=== PATIENT | female | born 1970 | race Caucasian/White ===

== ENCOUNTER → 2017-11-23 | Outpatient (CLI) | payer OTHER ==
[~2017-11-23] MED LIST: ALB17R INH; ALBU2.5V36 IH; ALBU8TAB4 PO; ALBUTEROL INHALER IH; ALP5 PO; AMLO-101 PO; ARIP10TA4 PO; AZIT-18 PO; CHOL100034; CHOL100052 PO; CHOL100061 PO; CHOL200022; CIP500 GT; CLO1 PO; CLON-303 PO; DES100PT PO; DESO1TAB32 PO; DESV50TA9 PO; DULO60CA51 PO; ESC10 PO; ESCI20TA38 PO; FROV2.5T6 PO; FUR20 PO; FURO20TA19 PO; FURO40TA35 PO; HCTZ25 PO; HYDR-3074 PO; HYZAAR PO; LAMO25TA64 PO; LISI-349 PO; LISI-362 PO; LISI-374 PO; LOR1 PO; LOS50 PO; LOSA-31 PO; MET850 PO; METF-408 PO; METH18ERPT PO; METH54TA12 PO; METO-221 PO; MULT-1379 PO; MULT1TAB64 PO; OMEG-11 PO; OMEG500C7 PO; OMEP-125 PO; ONDA4TAB97 PO; OXYC-865 PO; OXYC-869 PO; PAN40 PO; PANT20TA26 PO; PER PO; POTA20TA85 PO; PRED20TA6 PO; PRISTIQ; PRISTIQUE PO; PRO25 PO; PROM-110 PO; PROP120C31 PO; PROP160C20 PO; QUET200T29 PO; SPI25 PO; SPIRONALACTONE PO; TEMA-1 PO; TRAM-420 PO; TRAZ-163 PO; TRAZ150T61 PO; TRAZ300T17 PO; TRAZ50 PO; VENL150C61 PO; VERS120 PO
== END ==
LOC: LAB 14:44
PROVIDERS: ATTEND Internal Medicine Nephrology
DX: I10 Essential (primary) hypertension (principal); R53.83 Other fatigue
CPT/HCPCS: 36415; 82040; 82247; 82310; 82374; 82435; 82565; 82570; 82947; 84075; 84132; 84155; 84156; 84295; 84450; 84460; 84520

== ENCOUNTER → 2018-02-11 | Outpatient (REF) | payer OTHER ==
[2018-02-11 10:52] LABS: PLATELET COUNT, AUTOMATED 271 K/uL (150-450)
== END ==
PROVIDERS: ATTEND Nurse Practitioner Family
DX: N39.0 Urinary tract infection, site not specified (principal)
CPT/HCPCS: 82040; 82247; 82310; 82374; 82435; 82565; 82947; 84075; 84132; 84155; 84295; 84450; 84460; 84520; 85025

== ENCOUNTER 2018-03-04 16:54 | Emergency (ER) | payer OTHER ==
--- NOTE | 2018-03-04 17:03 | ER Report ---
History and Physical Time Seen By MD: 17:03 Hx. of Stated Complaint: Pt reporting severe headache that began suddenly at 1400. Pt states this is close to the worst headache ever. HPI/ROS CHIEF COMPLAINT: Headache HISTORY OF PRESENT ILLNESS: 47-year-old female patient presents to emergency room with complaint of headache. Patient states this headache started approximately 2:00 this afternoon and just came on out of nowhere. Patient states that she does get headaches and this one is especially bad. She is unable to ascertain whether this is a worsening headache of her life. Patient states she's been nauseated, she has been having some vomiting. She states that she has taken some Ultram for this with no improvement. She states that when she gets headaches like this that oftentimes there is nothing that seems to help. She denies having any fevers, chills. REVIEW OF SYSTEMS: Respiratory: No cough, no dyspnea. Cardiovascular: No chest pain, no palpitations. Gastrointestinal: No vomiting, no abdominal pain. Musculoskeletal: No back pain. Allergies: Coded Allergies: calcium carbonate (Verified Allergy, Intermediate, 07/02/16) amoxicillin (Verified Allergy, Mild, RASH, 04/30/15) aspirin (Verified Allergy, Mild, BLODDY NOSE , 04/30/15) fluconazole (Verified Allergy, Unknown, 04/30/15) latex (Verified Allergy, Unknown, 04/30/15) Home Meds Active Scripts Ondansetron (ZOFRAN ODT) 4 Mg Tab.rapdis, 4 MG PO Q6H Y for NAUSEA/VOMITING, # 20 TAB.BRANDI Prov:JUNIOR GARCÍA 03/04/18 Omeprazole (OMEPRAZOLE) 20 Mg Capsule., 1 CAP PO QDAY, #90 CAP 4 Refills Prov:RAKESH GOLDEN MD 07/24/16 Reported Medications Clonidine Hcl (CATAPRES) 0.1 Mg Tablet, 0.5 MG PO BID, TAB 03/04/18 [place]-3 Fatty Acids/Fish Oil (FISH OIL 1,000 MG CAPSULE) 1 Each Capsule, 1 CAP PO QDAY, CAPSULE 07/24/16 Cholecalciferol (Vitamin D3) (VITAMIN D) 1,000 Unit Tablet, 1000 UNIT PO 07/11/16 Multivitamin (MULTI VITAMIN DAILY) 1 Each Tablet, 1 TAB PO QDAY 07/11/16 Lamotrigine (LAMICTAL) 25 Mg Tablet, 3 TAB PO QDAY TAKE 50mg every morning for two weeks. Then take 100mg every morning & continue. 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 07/11/16 Furosemide (LASIX) 40 Mg Tablet, 1.5 TAB PO DAILY, TAB 1 tab po q am, 1/2 tab po q pm 07/11/16 Trazodone Hcl (TRAZODONE HCL) 100 Mg Tablet, 1 TAB PO QHS, TAB In addition to 300 mg for total of 400 mg 07/11/16 Venlafaxine Hcl (EFFEXOR XR) 150 Mg Cap.er.24h, 2 CAP PO QDAY 06/30/16 Tramadol Hcl (TRAMADOL HCL) 50 Mg Tablet, 1 TAB PO Q6H Y for PAIN 04/30/15 Trazodone Hcl (TRAZODONE HCL) 300 Mg Tablet, 1 TAB PO QHS In addition to 100 mg, for total of 400 mg. 04/30/15 Lisinopril (LISINOPRIL) 40 Mg Tablet, 1 TAB PO QDAY 04/30/15 Propranolol Hcl (PROPRANOLOL HCL) 160 Mg Cap.sa.24h, 1 CAP PO QDAY 04/30/15 Methylphenidate Hcl (CONCERTA) 54 Mg Tab.er.24, 1 TAB PO QDAY Y for work days 04/30/15 Methylphenidate Hcl (CONCERTA) 18 Mg Tab.er.24, 1 TAB PO QDAY 04/30/15 Discontinued Reported Medications Amlodipine Besylate (NORVASC) 5 Mg Tablet, 1 TAB PO QDAY, TAB 07/11/16 Aripiprazole (ABILIFY) 10 Mg Tablet, 1 TAB PO QHS, TAB 07/11/16 Discontinued Scripts Ondansetron Hcl (ZOFRAN) 4 Mg Tablet, 1 TAB PO PRN, #30 TAB 1 Refill Prov:RAKESH GOLDEN MD 07/24/16 Oxycodone Hcl/Acetaminophen (PERCOCET 5-325 MG TABLET) 1 Each Tablet, 1 TAB PO QID Y for pain, #30 TAB 0 Refills Prov:RAKESH GOLDEN MD 07/24/16 Promethazine Hcl (PROMETHAZINE HCL) 25 Mg Tablet, 1 TAB PO Q8H Y for nausea, # 30 TAB 0 Refills Prov:RAKESH GOLDEN MD 07/24/16 Past Medical/Surgical History Patient has a past medical history of migraines, symptomatic tachycardia, irregular heartbeat, hypertension, asthma, reflux, cholecystitis, diabetes, alcohol use, depression. Patient has a surgical history of LASIK surgery, tonsillectomy, right knee surgery, ulnar nerve repair, tubal ligation, uterine ablation, cholecystectomy. Patient has a family medical history of cancer, CAD, stroke, diabetes Reviewed Nurses Notes: Yes Hx Smoking: No Smoking Status: Never Smoker Exposure to Second Hand Smoke?: No Hx Substance Use Disorder: Yes Hx Alcohol Use: Yes Constitutional Vital Sign - Last 24 Hours 03/04/18 03/04/18 03/04/18 03/04/18 16:58 17:01 17:01 17:06 Pulse 119 Resp 16 B/P (MAP) 169/97 (121) 169/97 178/137 (151) Pulse Ox 95 O2 Delivery Room Air O2 Flow Rate 2.0 03/04/18 03/04/18 03/04/18 03/04/18 17:09 17:24 17:30 17:35 Pulse 105 112 113 Resp 13 B/P (MAP) 193/121 (145) Pulse Ox 95 94 95 03/04/18 03/04/18 03/04/18 03/04/18 17:36 17:40 17:45 18:00 Pulse 121 110 113 Resp 20 23 15 B/P (MAP) 140/53 (82) 130/74 (92) Pulse Ox 96 93 95 03/04/18 03/04/18 03/04/18 03/04/18 18:15 18:20 18:30 18:40 Pulse 102 103 Resp 25 11 B/P (MAP) 130/89 (103) 109/74 (86) Pulse Ox 95 94 03/04/18 03/04/18 03/04/18 03/04/18 18:45 19:00 19:15 19:20 Pulse 102 99 93 Resp 12 8 26 B/P (MAP) 127/75 (92) 115/87 (96) Pulse Ox 91 88 92 03/04/18 19:30 Pulse 95 Resp 20 B/P (MAP) 127/60 (82) Pulse Ox 97 Physical Exam General Appearance: The patient is alert, has no immediate need for airway protection and no current signs of toxicity. Eyes: Pupils equal and round no injection. Respiratory: Chest is non tender, lungs are clear to auscultation. Cardiac: regular rate and rhythm Gastrointestinal: Abdomen is soft and non tender, no masses, bowel sounds normal. Musculoskeletal: Neck: Neck is supple and non tender. Extremities have full range of motion and are non tender. Skin: No rashes or lesions. Neuro: Patient is alert and oriented 4, cranial nerves II through XII are grossly intact. DIFFERENTIAL DIAGNOSIS: After history and physical exam differential diagnosis was considered for headache including but not limited to subarachnoid hemorrhage , migraine headache, tension headache and infectious causes such as meningitis, pharyngitis and sinusitis. Medical Decision Making Data Points Result Diagram: 03/04/18 1707 03/04/18 1707 Laboratory Hematology Test 03/04/18 17:07 Red Blood Count 4.70 M/uL (4.17-5.56) Mean Corpuscular Volume 91.0 fL (80.0-96.0) Mean Corpuscular Hemoglobin 31.1 pg (26.0-33.0) Mean Corpuscular Hemoglobin Concent 34.1 g/dL (32.0-36.0) Red Cell Distribution Width 13.9 % (11.5-14.5) Mean Platelet Volume 9.0 fL (7.2-11.1) Neutrophils (%) (Auto) 70.9 % (39.4-72.5) Lymphocytes (%) (Auto) 19.9 % (17.6-49.6) Monocytes (%) (Auto) 6.0 % (4.1-12.4) Eosinophils (%) (Auto) 2.5 % (0.4-6.7) Basophils (%) (Auto) 0.7 % (0.3-1.4) Nucleated RBC Relative Count (auto) 0.0 /100WBC Neutrophils # (Auto) 7.7 K/uL (2.0-7.4) Lymphocytes # (Auto) 2.2 K/uL (1.3-3.6) Monocytes # (Auto) 0.6 K/uL (0.3-1.0) Eosinophils # (Auto) 0.3 K/uL (0.0-0.5) Basophils # (Auto) 0.1 K/uL (0.0-0.1) Nucleated RBC Absolute Count (auto) 0.00 K/uL Sodium Level 141 mmol/L (137-145) Potassium Level 3.4 mmol/L (3.5-5.0) Chloride Level 102 mmol/L (98-107) Carbon Dioxide Level 26 mmol/L (22-31) Blood Urea Nitrogen 10 mg/dl (7-18) Creatinine 0.70 mg/dl (0.52-1.04) Glomerular Filtration Rate Calc > 60.0 Random Glucose 123 mg/dl (75-110) Calcium Level 9.5 mg/dl (8.4-10.2) Total Bilirubin 0.9 mg/dl (0.2-1.3) Aspartate Amino Transf (AST/SGOT) 66 U/L (0-35) Alanine Aminotransferase (ALT/SGPT) 83 U/L (0-56) Alkaline Phosphatase 99 U/L (0-126) C-Reactive Protein 2.4 mg/dl (<1.0) Total Protein 7.5 gm/dl (6.3-8.2) Albumin 4.2 g/dl (3.5-5.0) Chemistry Test 03/04/18 17:07 White Blood Count 10.8 k/uL (4.5-11.0) Red Blood Count 4.70 M/uL (4.17-5.56) Hemoglobin 14.6 g/dL (12.0-16.0) Hematocrit 42.7 % (34.0-47.0) Mean Corpuscular Volume 91.0 fL (80.0-96.0) Mean Corpuscular Hemoglobin 31.1 pg (26.0-33.0) Mean Corpuscular Hemoglobin Concent 34.1 g/dL (32.0-36.0) Red Cell Distribution Width 13.9 % (11.5-14.5) Platelet Count 246 K/uL (150-450) Mean Platelet Volume 9.0 fL (7.2-11.1) Neutrophils (%) (Auto) 70.9 % (39.4-72.5) Lymphocytes (%) (Auto) 19.9 % (17.6-49.6) Monocytes (%) (Auto) 6.0 % (4.1-12.4) Eosinophils (%) (Auto) 2.5 % (0.4-6.7) Basophils (%) (Auto) 0.7 % (0.3-1.4) Nucleated RBC Relative Count (auto) 0.0 /100WBC Neutrophils # (Auto) 7.7 K/uL (2.0-7.4) Lymphocytes # (Auto) 2.2 K/uL (1.3-3.6) Monocytes # (Auto) 0.6 K/uL (0.3-1.0) Eosinophils # (Auto) 0.3 K/uL (0.0-0.5) Basophils # (Auto) 0.1 K/uL (0.0-0.1) Nucleated RBC Absolute Count (auto) 0.00 K/uL Glomerular Filtration Rate Calc > 60.0 Calcium Level 9.5 mg/dl (8.4-10.2) Total Bilirubin 0.9 mg/dl (0.2-1.3) Aspartate Amino Transf (AST/SGOT) 66 U/L (0-35) Alanine Aminotransferase (ALT/SGPT) 83 U/L (0-56) Alkaline Phosphatase 99 U/L (0-126) C-Reactive Protein 2.4 mg/dl (<1.0) Total Protein 7.5 gm/dl (6.3-8.2) Albumin 4.2 g/dl (3.5-5.0) EKG/Imaging Imaging CT Head without contrast Indication: Headache. Comparison: 02/25/2012. Technique: Axial CT images were obtained through the brain from the skull base to the vertex without administration of IV contrast. Reformatted coronal and sagittal images were also obtained. One of the following dose optimization techniques was utilized in the performance of this exam: automated exposure control; adjustment of the mA and/ or kV according to the patient's size; or use of an iterative reconstruction technique. Specific details can be referenced in the facility's radiology CT exam operational policy. Findings: No evidence of mass, mass effect, or midline shift. No acute intracranial hemorrhage or acute territorial infarction. No extra-axial fluid collection or hydrocephalus. No abnormal density. [place]/ white matter differentiation appears normal. Bony structures show no fractures or lesions. The visualized paranasal sinuses and mastoid air cells are clear. IMPRESSION: 1. Negative unenhanced CT of the head. Report Dictated By: Edgard Henson at 03/04/2018 6:21 PM Report E-Signed By: Edgard Henson at 03/04/2018 6:25 PM ED Course/Re-evaluation ED Course Patient was admitted exam room, history and physical were obtained. Differential diagnoses were considered. On examination patient has significant amount of pain. She had photophobia. An IV was started, CBC, CMP, CRP was done. Patient did have an elevated CRP of 2.4, the remainder the labs were unremarkable. Due to the significant level of pain a CT scan of the head was done which was negative. Patient did receive 4 mg of morphine prior to her CAT scan. Patient did receive a dose of Phenergan after her CAT scan which is complaining of nausea. When the CT scan was negative patient received 30 mg of Toradol, so 30 mg of Norflex, 25 mg of Benadryl and 10 mg of Decadron. On reevaluation patient states that her pain had gone from a 6 out of 10 to a 2 out of 10. Patient feels significant better. She is tired and like to go home and sleep. Patient will be discharged at this time. She is to follow-up with her primary care provider in the next week. Patient verbalized understanding and agreement with plan. Decision to Disposition Date: March 04, 2018 Decision to Disposition Time: 19:45 Depart Departure Latest Vital Signs Vital Signs Date Time Temp Pulse Resp B/P (MAP) Pulse Ox O2 Delivery O2 Flow Rate FiO2 03/04/18 19:30 95 20 127/60 (82) 97 03/04/18 17:01 2.0 03/04/18 17:01 Room Air Impression: Primary Impression: Migraine Condition: Improved Disposition: HOME OR SELF-CARE Referrals: RAKESH GOLDEN MD (PCP) New Scripts Ondansetron (ZOFRAN ODT) 4 Mg Tab.rapdis 4 MG PO Q6H Y for NAUSEA/VOMITING, #20 TAB.BRANDI Prov: JUNIOR GARCÍA 03/04/18 Patient Instructions: Migraine Headache (ED) Additional Instructions: Increase fluid intake. Get plenty of rest. Follow up with your primary care provider. Return to the ER if condition worsens. Keep a journal for possible triggers. Problem Qualifiers Primary Impression: Migraine Migraine type: without aura Status migrainosus presence: without status migrainosus Intractability: not intractable Qualified Codes: G43.009 - Migraine without aura, not intractable, without status migrainosus JUNIOR GARCÍA March 04, 2018 17:03
[2018-03-04] MEDS ORDERED: NS(*) 0.9% 1000 ML BAG 1,000 ML IV ONE (17:07)
[2018-03-04] MEDS ORDERED: MORPHINE 2 MG/ML SYR IVP ONE (17:10)
[2018-03-04] MEDS ORDERED: CLON-392 PO (17:10)
[2018-03-04] MEDS ORDERED: ONDANSETRON 4 MG/2 ML VIAL IVP ONE (17:10)
[2018-03-04 17:18] LABS: PLATELET COUNT, AUTOMATED 246 K/uL (150-450)
[2018-03-04] MEDS ORDERED: PROMETHAZINE 25 MG/ML 1 ML AMP IVP ONE (18:15)
--- NOTE | 2018-03-04 18:29 | RADIOLOGY IMAGING REPORT ---
FACILITY: [facility] [place] PATIENT NAME: Erin Mckay : 1970 MR: [id number] V: [id number] EXAM DATE: ORDERING PHYSICIAN: JUNIOR GARCÍA [place]CHNOLOGIST[place] [facility] [place] Mck[place] : 1970 Visit/Account:[id number] Date of Sevice: 03/04/2018 CT Head without contrast Indication: Headache. Comparison: 02/25/2012. Technique: Axial CT images were obtained through the brain from the skull base to the vertex without administration of IV contrast. Reformatted coronal and sagittal images were also obtained. One of the following dose optimization techniques was utilized in the performance of this exam: autom ated exposure control; adjustment of the mA and/or kV according to the patient's size; or use of an i terative reconstruction technique. Specific details can be referenced in the facility's radiology CT exam operational policy. Findings: No evidence of mass, mass effect, or midline shift. No acute intracranial hemorrhage or acute territorial infarction. No extra-axial fluid collection or hydrocephalus. No abnormal density. Parker/white matter differentiat ion appears normal. Bony structures show no fractures or lesions. The visualized paranasal sinuses and mastoid air cells are clear. IMPRESSION: 1. Negative unenhanced CT of the head. Report Dictated By: Edgard Henson at 03/04/2018 6:21 PM Report E-Signed By: Edgard Henson at 03/04/2018 6:25 PM WSN:[id number]
[2018-03-04] MEDS ORDERED: ORPHENADRINE 60MG/2ML INJ IVP ONE (18:35)
[2018-03-04] MEDS ORDERED: DEXAMETHASONE SOD PHOS 10MG/ML IVP ONE (18:35)
[2018-03-04] MEDS ORDERED: diphenhydrAMINE 50 MG/ML VIAL IVP ONE (18:35)
[2018-03-04] MEDS ORDERED: KETOROLAC 30 MG/ML VIAL IVP ONE (18:35)
[2018-03-04 19:40] VITALS: BP 131/91
[2018-03-04] MEDS ORDERED: ONDA4TAB PO (19:44)
== END 2018-03-04 20:01 | disposition home or self-care (01) ==
LOC: ER 16:59
DX: G43.009 Migraine without aura, not intractable, without status migrainosus (principal); R11.2 Nausea with vomiting, unspecified
CPT/HCPCS: 70450; 85025; 86140; 96361; 96374; 96375; 99284; J1100; J1200; J1885; J2270; J2360; J2405; J2550; J7030; 82040; 82247; 82310; 82374; 82435; 82565; 82947; 84075; 84132; 84155; 84295; 84450; 84460; 84520

== ENCOUNTER → 2018-04-12 | Outpatient (CLI) | payer OTHER ==
[~2018-04-12] MED LIST changes: +CLON-392 PO; +ONDA4TAB PO
[2018-04-12 15:59] LABS: PLATELET COUNT, AUTOMATED 221 K/uL (150-450)
--- NOTE | 2018-04-12 16:47 | EKG ---
FACILITY: [facility] PATIENT NAME: IGNACIO CURRAN : [id number] MR: [id number] V: [id number] EXAM DATE: ORDERING PHYSICIAN: ROSS GAMA TECHNOLOGIST: GAVIN Lucia Reason : PRE-OP Blood Pressure : / mmHG Vent. Rate : 094 BPM Atrial Rate : 094 BPM P-R Int : 144 ms QRS Dur : 080 ms QT Int : 328 ms P-R-T Axes : 058 067 045 degrees QTc Int : 410 ms Normal sinus rhythm Nonspecific T wave abnormality Abnormal ECG When compared with ECG of 01-FEB-2013 07:09, Nonspecific T wave abnormality now evident in Inferior leads Confirmed by AAKASH POWELL ([id number]) on 04/13/2018 7:46:03 AM Referred By: Confirmed By:AAKASH POWELL
== END ==
LOC: LAB 15:34
PROVIDERS: ATTEND Nurse Practitioner Psychiatric/Mental Health
DX: Z00.00 Encounter for general adult medical examination without abnormal findings (principal); Z01.810 Encounter for preprocedural cardiovascular examination; R94.31 Abnormal electrocardiogram [ECG] [EKG]
CPT/HCPCS: 36415; 81001; 81025; 82040; 82247; 82310; 82374; 82435; 82565; 82947; 84075; 84132; 84155; 84295; 84443; 84450; 84460; 84520; 85025; 93005

== ENCOUNTER 2018-10-23 19:41 | Inpatient (IN) | payer OTHER ==
[~2018-10-23] VITALS: Ht 160 cm; Wt 92.8 kg
[~2018-10-23 19:41] MED LIST changes: +BUPR-124 PO; +FURO-47 PO; +PRAZ2CAP26 PO; -TRAZ-163 PO; +TRAZ100T31 PO
--- NOTE | 2018-10-23 19:44 | ER Report ---
History and Physical Time Seen By MD: 19:44 HPI/ROS CHIEF COMPLAINT: Shortness of breath HISTORY OF PRESENT ILLNESS: Patient is a 48-year-old female with known history of reactive airways disease also with history of atypical chest pain she pre sents with approximately 24 hours of increased work of breathing, cough and body aches headache and subjective fevers. She states she's also noticed bilateral lower extremity swelling over the last 24 hours. He admits to some chest tightness. Patient has been using her albuterol inhaler without success. Patient states that she felt well prior to yesterday. She did receive her influenza vaccine. Patient works as a nurse on the behavioral medicine floor. REVIEW OF SYSTEMS: Constitutional: Subjective fevers Eyes: No discharge. ENT: No sore throat. Cardiovascular: Chest tightness Respiratory: Increased work of breathing cough and shortness of breath Gastrointestinal: No abdominal pain, no vomiting. Genitourinary: No hematuria. Musculoskeletal: No back pain. Skin: No rashes. Neurological: Generalized headache Allergies: Coded Allergies: calcium carbonate (Verified Allergy, Intermediate, 07/02/16) amoxicillin (Verified Allergy, Mild, RASH, 04/30/15) aspirin (Verified Allergy, Mild, BLODDY NOSE , 04/30/15) fluconazole (Verified Allergy, Unknown, 04/30/15) latex (Verified Allergy, Unknown, 04/30/15) Home Meds Active Scripts Omeprazole (OMEPRAZOLE) 20 Mg Capsule.dr, 1 CAP PO QDAY, #90 CAP 4 Refills Prov:RAKESH GOLDEN MD 07/24/16 Reported Medications Memantine HCl 10 MG (Memantine HCl 10 MG) 10 Mg Tablet, 10 MG PO BID 10/23/18 Venlafaxine Hcl (VENLAFAXINE HCL ER) 150 Mg Tab.er.24, 450 MG PO QDAY 10/23/18 Trazodone Hcl (TRAZODONE HCL) 100 Mg Tablet, 100 MG PO QHS, TAB Take with a 300mg tablet for a total of 400mg at HS. 10/23/18 Prazosin Hcl (PRAZOSIN HCL) 2 Mg Capsule, 6 MG PO QHS, CAPSULE 10/23/18 Bupropion Hcl (BUPROPION HCL SR) 150 Mg Tablet.er, 450 MG PO DAILY 10/23/18 Furosemide (FUROSEMIDE) 20 Mg Tablet, 1 TAB PO QPM PRN for SEE COMMENT, TAB 10/23/18 Trazodone Hcl (TRAZODONE HCL) 300 Mg Tablet, 300 MG PO QHS Take with a 100mg tablet for a total of 400mg at HS. 10/23/18 Furosemide (FUROSEMIDE) 40 Mg Tablet, 1 TAB PO QDAY, TAB 04/15/18 Propranolol Hcl (PROPRANOLOL HCL) 160 Mg Cap.sa.24h, 1 CAP PO QDAY 04/15/18 [place]-3 Fatty Acids/Fish Oil (FISH OIL 1,000 MG CAPSULE) 1 Each Capsule, 1 CAP PO QDAY, CAPSULE 07/24/16 Cholecalciferol (Vitamin D3) (VITAMIN D) 1,000 Unit Tablet, 1 TAB PO QDAY 07/11/16 Multivitamin (MULTI VITAMIN DAILY) 1 Each Tablet, 1 TAB PO QDAY 07/11/16 Discontinued Reported Medications Venlafaxine Hcl (VENLAFAXINE HCL ER) 75 Mg Tab.er.24, 75 MG PO QDAY 10/23/18 Bupropion HCl (Bupropion HCl ER) 200 Mg Tablet.er, 350 MG PO QDAY 10/23/18 Venlafaxine Hcl (VENLAFAXINE HCL ER) 225 Mg Tab.er.24, 225 MG PO QDAY 10/23/18 Prazosin Hcl (PRAZOSIN HCL) 5 Mg Capsule, 6 MG PO QDAY, CAPSULE 10/23/18 Venlafaxine Hcl (EFFEXOR XR) 75 Mg Cap.er.24h, 75 MG PO TID 10/23/18 Prazosin Hcl (PRAZOSIN HCL) 2 Mg Capsule, 2 CAP PO QDAY, CAPSULE 04/15/18 Clonidine Hcl (CATAPRES) 0.1 Mg Tablet, 0.5 TAB PO BID, TAB 03/04/18 Lamotrigine (LAMICTAL) 25 Mg Tablet, 3 TAB PO QDAY 07/11/16 Venlafaxine Hcl (EFFEXOR XR) 150 Mg Cap.er.24h, 3 CAP PO QDAY 06/30/16 Trazodone Hcl (TRAZODONE HCL) 300 Mg Tablet, 1 TAB PO QHS 04/30/15 Past Medical/Surgical History Patient has a past medical history of migraines, symptomatic tachycardia, irregular heartbeat, hypertension, asthma, reflux, cholecystitis, diabetes, alcohol use, depression. Patient has a surgical history of LASIK surgery, tonsillectomy, right knee surgery, ulnar nerve repair, tubal ligation, uterine ablation, cholecystectomy. Patient has a family medical history of cancer, CAD, stroke, diabetes Hx Smoking: No Smoking Status: Never Smoker Exposure to Second Hand Smoke?: No Hx Substance Use Disorder: No Hx Alcohol Use: Yes Constitutional Vital Sign - Last 24 Hours 10/23/18 10/23/18 10/23/18 10/23/18 19:43 19:46 19:50 19:50 Temp 97.4 Pulse 85 82 Resp 26 24 B/P (MAP) 133/107 (116) 133/107 Pulse Ox 93 100 O2 Delivery Room Air Nasal Cannula O2 Flow Rate 2.0 10/23/18 10/23/18 10/23/18 10/23/18 19:53 19:56 20:11 20:26 Pulse 90 87 90 Resp 35 Pulse Ox 95 98 98 O2 Flow Rate 2.0 10/23/18 10/23/18 10/23/18 10/23/18 20:31 20:46 20:52 21:00 Pulse 92 82 Resp 29 19 B/P (MAP) 137/83 (101) 112/96 (101) Pulse Ox 98 97 10/23/18 10/23/18 10/23/18 10/23/18 21:01 21:06 21:21 21:30 Pulse 82 80 75 Resp 42 14 12 B/P (MAP) 136/81 (99) Pulse Ox 97 97 99 Physical Exam General Appearance: The patient is alert, has no immediate need for airway protection and no signs of toxicity. Patient with increased work of breathing and accessory muscle use. Only able to talk in 3-4 word sentences Eyes: Pupils equal and round no pallor or injection. ENT, Mouth: Mucous membranes are moist. Respiratory: Patient with retractions, audible wheezing and increased respiratory rate. Cardiovascular: Regular rate and rhythm. Gastrointestinal: Abdomen is soft and non tender, no masses, bowel sounds normal. Neurological: Awake and alert Skin: Warm and dry, no rashes. Musculoskeletal: Neck is supple non tender. Extremities are nontender, nonswollen and have full range of motion. Medical Decision Making Data Points Result Diagram: 10/23/18199910/23/181999 Laboratory Hematology Test 10/23/18 19:51 10/23/18 20:00 Influenza Virus Type A (PCR) Negative (NEGATIVE) Influenza Virus Type B (PCR) Negative (NEGATIVE) Red Blood Count 5.66 M/uL (4.17-5.56) Mean Corpuscular Volume 90.3 fL (80.0-96.0) Mean Corpuscular Hemoglobin 30.3 pg (26.0-33.0) Mean Corpuscular Hemoglobin Concent 33.5 g/dL (32.0-36.0) Red Cell Distribution Width 13.5 % (11.5-14.5) Mean Platelet Volume 10.1 fL (7.2-11.1) Neutrophils (%) (Auto) 67.9 % (39.4-72.5) Lymphocytes (%) (Auto) 19.7 % (17.6-49.6) Monocytes (%) (Auto) 8.4 % (4.1-12.4) Eosinophils (%) (Auto) 3.0 % (0.4-6.7) Basophils (%) (Auto) 1.0 % (0.3-1.4) Nucleated RBC Relative Count (auto) 0.0 /100WBC Neutrophils # (Auto) 12.2 K/uL (2.0-7.4) Lymphocytes # (Auto) 3.5 K/uL (1.3-3.6) Monocytes # (Auto) 1.5 K/uL (0.3-1.0) Eosinophils # (Auto) 0.5 K/uL (0.0-0.5) Basophils # (Auto) 0.2 K/uL (0.0-0.1) Nucleated RBC Absolute Count (auto) 0.00 K/uL Sodium Level 137 mmol/L (137-145) Potassium Level 4.4 mmol/L (3.5-5.0) Chloride Level 99 mmol/L (98-107) Carbon Dioxide Level 26 mmol/L (22-31) Blood Urea Nitrogen 14 mg/dl (7-18) Creatinine 0.80 mg/dl (0.52-1.04) Glomerular Filtration Rate Calc > 60.0 Random Glucose 92 mg/dl (75-110) Calcium Level 10.7 mg/dl (8.4-10.2) Total Bilirubin 0.4 mg/dl (0.2-1.3) Aspartate Amino Transf (AST/SGOT) 38 U/L (0-35) Alanine Aminotransferase (ALT/SGPT) 41 U/L (0-56) Alkaline Phosphatase 100 U/L (0-126) Troponin I < 0.012 ng/ml B-Type Natriuretic Peptide 34 pg/ml (0-100) Total Protein 8.2 g/dl (6.3-8.2) Albumin 4.5 g/dl (3.5-5.0) Human Chorionic Gonadotropin, Qual Negative (NEGATIVE) Chemistry Test 10/23/18 19:51 10/23/18 20:00 Influenza Virus Type A (PCR) Negative (NEGATIVE) Influenza Virus Type B (PCR) Negative (NEGATIVE) White Blood Count 18.0 k/uL (4.5-11.0) Red Blood Count 5.66 M/uL (4.17-5.56) Hemoglobin 17.1 g/dL (12.0-16.0) Hematocrit 51.1 % (34.0-47.0) Mean Corpuscular Volume 90.3 fL (80.0-96.0) Mean Corpuscular Hemoglobin 30.3 pg (26.0-33.0) Mean Corpuscular Hemoglobin Concent 33.5 g/dL (32.0-36.0) Red Cell Distribution Width 13.5 % (11.5-14.5) Platelet Count 299 K/uL (150-450) Mean Platelet Volume 10.1 fL (7.2-11.1) Neutrophils (%) (Auto) 67.9 % (39.4-72.5) Lymphocytes (%) (Auto) 19.7 % (17.6-49.6) Monocytes (%) (Auto) 8.4 % (4.1-12.4) Eosinophils (%) (Auto) 3.0 % (0.4-6.7) Basophils (%) (Auto) 1.0 % (0.3-1.4) Nucleated RBC Relative Count (auto) 0.0 /100WBC Neutrophils # (Auto) 12.2 K/uL (2.0-7.4) Lymphocytes # (Auto) 3.5 K/uL (1.3-3.6) Monocytes # (Auto) 1.5 K/uL (0.3-1.0) Eosinophils # (Auto) 0.5 K/uL (0.0-0.5) Basophils # (Auto) 0.2 K/uL (0.0-0.1) Nucleated RBC Absolute Count (auto) 0.00 K/uL Glomerular Filtration Rate Calc > 60.0 Calcium Level 10.7 mg/dl (8.4-10.2) Total Bilirubin 0.4 mg/dl (0.2-1.3) Aspartate Amino Transf (AST/SGOT) 38 U/L (0-35) Alanine Aminotransferase (ALT/SGPT) 41 U/L (0-56) Alkaline Phosphatase 100 U/L (0-126) Troponin I < 0.012 ng/ml B-Type Natriuretic Peptide 34 pg/ml (0-100) Total Protein 8.2 g/dl (6.3-8.2) Albumin 4.5 g/dl (3.5-5.0) Human Chorionic Gonadotropin, Qual Negative (NEGATIVE) EKG/Imaging EKG Interpretation EKG shows sinus rhythm with short MI interval. 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 Findings: Cardiac and hilar contour size is normal. Mild peribronchial inflammation. No consolidation or nodule. No pneumothorax, edema, or effusion. Osseous structures are intact. IMPRESSION: Mild peribronchial inflammation is suggestive of an acute versus chronic bronchitis. Report Dictated By: Jeevan aMrtinez MD at 10/23/2018 8:57 PM Report E-Signed By: Jeevan Martinez MD at 10/23/2018 8:58 PM [id number] ED Course/Re-evaluation ED Course 10/23/2018 7:53:53 pm patient with severe asthma exacerbation. Plan at this time will be hour-long nebulizer treatment with 10 mg of albuterol milligrams Atrovent. We will also perform cardiac workup. We will give IV Solu-Medrol check peak flows and give 1 g of IV magnesium. 10/23/2018 8:30:57 pm pretest peak flows 50% of predicted. Patient currently receiving hour-long nebulizer treatment awaiting remaining workup. 10/23/2018 8:43:33 pm patient reports subjective improvement currently receiving hour-long nebulizer treatment. troponin and brain natruretic peptide are negative. She will likely require admission 10/23/2018 9:03:27 pm patient reexamined still continuing hour-long nebulizer treatment. Audible wheezing seems to be improved patient somewhat jittery from albuterol. The wheeze does remain with forced exhalation or cough. Decision to Disposition Date: Oct 23, 2018 Decision to Disposition Time: 21:18 Depart Departure Latest Vital Signs Vital Signs Date Time Temp Pulse Resp B/P (MAP) Pulse Ox O2 Delivery O2 Flow Rate FiO2 10/23/18 21:30 136/81 (99) 10/23/18 21:21 75 12 99 10/23/18 19:53 2.0 10/23/18 19:50 Nasal Cannula 10/23/18 19:46 97.4 Impression: Primary Impression: Acute bronchitis with asthma with acute exacerbation Condition: Improved Disposition: Admitted from ER (to DR Jermaine Mendez) Referrals: RAKESH GOLDEN MD (PCP) MASOOD JIMENES MD Oct 23, 2018 19:44
[2018-10-23] MEDS ORDERED: IPRATROPIUM 0.5MG/2.5ML NEB NEB ONE (19:50)
[2018-10-23] MEDS ORDERED: methylPREDNIS SUCC 125 MG/2ML IVP ONE (19:50)
[2018-10-23] MEDS ORDERED: ALBUTEROL 2.5 MG/0.5ML ER ONLY NEB ONE (19:50)
[2018-10-23] MEDS ORDERED: MAGNESIUM SUL/D5W* 1 GM/100 ML 100 ML IVPB ONE (19:55)
[2018-10-23] MEDS ORDERED: VENL75CA58 PO (19:56)
[2018-10-23] MEDS ORDERED: PRAZ5CAP16 PO (19:58)
[2018-10-23] MEDS ORDERED: TRAZ300T17 PO (19:58)
[2018-10-23] MEDS ORDERED: FURO-45 PO (19:59)
[2018-10-23 20:18] LABS: PLATELET COUNT, AUTOMATED 299 K/uL (150-450)
--- NOTE | 2018-10-23 21:03 | RADIOLOGY IMAGING REPORT ---
[place]ACILITY[place] [facility] [place]IENT NAME: Erin Mckay : 1970 MR: [id number] V: [id number] EXAM DATE: ORDERING PHYSICIAN: MASOOD JIMENES TECHNOLOGIST: Location: [facility] [place] Patient: Erin Mckay : 1970 Visit/Account:[id number] Date of Sevice: 10/23/2018 Examination: CHEST SINGLE AP Comparison: 06/27/2014 History: Shortness of breath. Findings: Cardiac and hilar contour size is normal. Mild peribronchial inflammation. No consolidation or nodule. No pneumothorax, edema, or effusion. Osseous structures are intact. IMPRESSION: Mild peribronchial inflammation is suggestive of an acute versus chronic bronchitis. Report Dictated By: Jeevan Martinez MD at 10/23/2018 8:57 PM Report E-Signed By: Jeevan Martinez MD at 10/23/2018 8:58 PM [id number]
--- NOTE | 2018-10-23 21:34 | EKG ---
FACILITY: [facility] [place] PATIENT NAME: IGNACIO CURRAN : [id number] MR: [id number] V: [id number] EXAM DATE: ORDERING PHYSICIAN: MASOOD JIMENES TECHNOLOGIST: ERIKA Test Reason : DYSPNEA Blood Pressure : / mmHG Vent. Rate : 084 BPM Atrial Rate : 084 BPM P-R Int : 104 ms QRS Dur : 070 ms QT Int : 354 ms P-R-T Axes : 071 067 078 degrees QTc Int : 418 ms Interpretation difficult due to baseline interference Sinus rhythm with short HI interval Otherwise normal ECG When compared with ECG of 12-APR-2018 15:51, HI interval has decreased Confirmed by JUAN STYLES ([id number]) on 10/24/2018 6:34:47 AM Referred By: Confirmed By:JUAN STYLES
[2018-10-23 22:00] VITALS: BP 136/79
[2018-10-23] MEDS ORDERED: BUPR200T34 PO (22:47)
[2018-10-23] MEDS ORDERED: PRAZ2CAP26 PO (22:47)
[2018-10-23] MEDS ORDERED: TRAZ100T31 PO (22:47)
[2018-10-23] MEDS ORDERED: BUPR-136 PO (22:47)
[2018-10-23] MEDS ORDERED: VENL75TA98 PO (22:47)
[2018-10-23] MEDS ORDERED: VENL225T5 PO (22:47)
[2018-10-23] MEDS ORDERED: VENL150T10 PO (22:49)
[2018-10-23] MEDS ORDERED: MEMA10TA3 PO (23:06)
[2018-10-23] MEDS ORDERED: ONDANSETRON 4 MG/2 ML VIAL IVP PRN (23:10)
[2018-10-23] MEDS ORDERED: ALBUTEROL 2.5 MG/3 ML NEB NEB PRN (23:15)
[2018-10-23] MEDS ORDERED: INFLUENZA VIRUS VAC 0.5ML SYR IM ONLY ONE (23:15)
[2018-10-23] MEDS ORDERED: FLUSH 10 ML SYR IVP PRN (23:15)
[2018-10-23] MEDS: ALBUTEROL 2.5 MG/3 ML NEB NEB SCH (23:38)
--- NOTE | 2018-10-23 23:43 | History & Physical ---
History of Present Illness Chief Complaint Shortness of breath, pulse ox was low. History of Present Illness The patient is a 48 year old female with PMH significant for asthma who presents with shortness of breath on and off over the past week. She denies cold symptoms such as sore throat, runny nose or sneezing. She denies fever and chills. She does note she has had increased swelling in her legs and hands. She has also had a cough which has been productive of phlegm. The cough is worse when supine. The patient has a history of asthma. She has not been hospitalized due to asthma in the past but has had to take steroids for exacerbations on many occasions. 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 She arrived at work and felt s hort of breath. She checked her pulse oximetry which was low, in the 70s. She then checked in to the ER for evaluation. CXR showed peribronchial thickening without infiltrate. WBC was elevated at 18,000. She did have mild elevation of her calcium at 10.7. In the ER she was given an hour long albuterol nebulizer treatment and solumedrol 125mg IV. She was also given a gram of magnesium. She was recommended for admission for monitoring and continued IV steroids and nebulizer treatments. History Problems: (1) GERD (gastroesophageal reflux disease) Status: Chronic (2) Essential hypertension Status: Chronic (3) Edema Status: Chronic (4) Asthma Status: Chronic (5) DM w/o complication type II Status: Chronic (6) Migraine Status: Chronic (7) Polycystic ovaries Status: Chronic (8) Severe recurrent major depression without psychotic features Status: Chronic Home Meds Active Scripts Omeprazole (OMEPRAZOLE) 20 Mg Capsule.dr, 1 CAP PO QDAY, #90 CAP 4 Refills Prov:RAKESH GOLDEN MD 07/24/16 Reported Medications Memantine HCl 10 MG (Memantine HCl 10 MG) 10 Mg Tablet, 10 MG PO BID 10/23/18 Venlafaxine Hcl (VENLAFAXINE HCL ER) 150 Mg Tab.er.24, 450 MG PO QDAY 10/23/18 Trazodone Hcl (TRAZODONE HCL) 100 Mg Tablet, 100 MG PO QHS, TAB Take with a 300mg tablet for a total of 400mg at HS. 10/23/18 Prazosin Hcl (PRAZOSIN HCL) 2 Mg Capsule, 6 MG PO QHS, CAPSULE 10/23/18 Bupropion Hcl (BUPROPION HCL SR) 150 Mg Tablet.er, 450 MG PO DAILY 10/23/18 Furosemide (FUROSEMIDE) 20 Mg Tablet, 1 TAB PO QPM PRN for SEE COMMENT, TAB 10/23/18 Trazodone Hcl (TRAZODONE HCL) 300 Mg Tablet, 300 MG PO QHS Take with a 100mg tablet for a total of 400mg at HS. 10/23/18 Furosemide (FUROSEMIDE) 40 Mg Tablet, 1 TAB PO QDAY, TAB 04/15/18 Propranolol Hcl (PROPRANOLOL HCL) 160 Mg Cap.sa.24h, 1 CAP PO QDAY 04/15/18 [place]-3 Fatty Acids/Fish Oil (FISH OIL 1,000 MG CAPSULE) 1 Each Capsule, 1 CAP PO QDAY, CAPSULE 07/24/16 Cholecalciferol (Vitamin D3) (VITAMIN D) 1,000 Unit Tablet, 1 TAB PO QDAY 07/11/16 Multivitamin (MULTI VITAMIN DAILY) 1 Each Tablet, 1 TAB PO QDAY 07/11/16 Discontinued Reported Medications Venlafaxine Hcl (VENLAFAXINE HCL ER) 75 Mg Tab.er.24, 75 MG PO QDAY 10/23/18 Bupropion HCl (Bupropion HCl ER) 200 Mg Tablet.er, 350 MG PO QDAY 10/23/18 Venlafaxine Hcl (VENLAFAXINE HCL ER) 225 Mg Tab.er.24, 225 MG PO QDAY 10/23/18 Prazosin Hcl (PRAZOSIN HCL) 5 Mg Capsule, 6 MG PO QDAY, CAPSULE 10/23/18 Venlafaxine Hcl (EFFEXOR XR) 75 Mg Cap.er.24h, 75 MG PO TID 10/23/18 Prazosin Hcl (PRAZOSIN HCL) 2 Mg Capsule, 2 CAP PO QDAY, CAPSULE 04/15/18 Clonidine Hcl (CATAPRES) 0.1 Mg Tablet, 0.5 TAB PO BID, TAB 03/04/18 Lamotrigine (LAMICTAL) 25 Mg Tablet, 3 TAB PO QDAY 07/11/16 Venlafaxine Hcl (EFFEXOR XR) 150 Mg Cap.er.24h, 3 CAP PO QDAY 06/30/16 Trazodone Hcl (TRAZODONE HCL) 300 Mg Tablet, 1 TAB PO QHS 04/30/15 Allergies: Coded Allergies: calcium carbonate (Verified Allergy, Intermediate, 07/02/16) amoxicillin (Verified Allergy, Mild, RASH, 04/30/15) aspirin (Verified Allergy, Mild, BLODDY NOSE , 04/30/15) fluconazole (Verified Allergy, Unknown, 04/30/15) latex (Verified Allergy, Unknown, 04/30/15) Patient History: FH: COPD (chronic obstructive pulmonary disease) FATHER, , Age:64 FH: HTN (hypertension) MOTHER, Age:70 FH: IL (myocardial infarction) FATHER, , Age:64 MATERNAL GRANDFATHER, , Age:70 PATERNAL GRANDFATHER, , Age:70 FH: breast cancer MOTHER, Age:70, Onset:69 MATERNAL GRANDMOTHER, , Age:86 FH: diabetes mellitus MATERNAL GRANDMOTHER, , Age:86 FH: lupus FATHER, , Age:64 FH: rheumatoid arthritis MOTHER, Age:70 Hx Smoking: No Smoking Status: Never Smoker Exposure to Second Hand Smoke?: No Caffeine Intake: Soda Caffeine/Cups Per Day: 3 cups a day Hx Alcohol Use: Yes Hx Substance Use Disorder: No Social Drug Use: Never Social Drugs: Marijuana, Prescription Drugs Amount Of Social Drug/s Used: 1-2 x per week for aprox 1 year History of IV Drug Use: No Review of Systems Constitutional: No Fever, No Chills ENT: No Sore Throat Cardiovascular: Other (Chest tightness.) Respiratory: Shortness of Breath, Cough, Wheezing Gastrointestinal: Nausea (Due to meds given in ER.) Genitourinary: No Dysuria Musculoskeletal: Pain (Arthritis, migraines.) Psychiatric: Depression, Anxiety Exam Vital Signs Vital Signs Date Time Temp Pulse Resp B/P (MAP) Pulse Ox O2 Delivery O2 Flow Rate FiO2 10/23/18 22:00 99.0 78 18 136/79 (98) 95 Nasal Cannula 1.0 General Appearance: Alert, Awake, No Acute Distress Neuro: No Gross deficits Eyes: PERRLA Cardiovascular: Other (Tachy, regular.) Respiratory: Other (Decreased air movement without wheezing.) GI: Abd Soft and Non-Tender Extremities: Warm, Perfused, Edema (Trace to 1+ edema.) Integumentary: Skin Intact without Lesion / Mass Psych: Alert & Oriented X3, Appropriate Mood & Affect Medical Decision Making Data Points Result Diagram: 10/23/18199910/23/181999 Item Value Date Time Influenza Virus Type A (PCR) Negative 10/23/181950 Influenza Virus Type B (PCR) Negative 10/23/181950 Calcium Level 10.7 mg/dl H 10/23/181999 Total Bilirubin 0.4 mg/dl 10/23/181999 Aspartate Amino Transf (AST/SGOT) 38 U/L H 10/23/181999 Alanine Aminotransferase (ALT/SGPT) 41 U/L 10/23/181999 Alkaline Phosphatase 100 U/L 10/23/181999 Total Protein 8.2 g/dl 10/23/181999 Albumin 4.5 g/dl 10/23/181999 Troponin I < 0.012 ng/ml 10/23/181999 B-Type Natriuretic Peptide 34 pg/ml 10/23/181999 Human Chorionic Gonadotropin, Qual Negative 10/23/181999 EKG / Imaging EKG Interpretation FACILITY: [facility] PATIENT NAME: ERIN MCKAY : [id number] MR: [id number] V: [id number] EXAM DATE: ORDERING PHYSICIAN: MASOOD JIMENES TECHNOLOGIST: DMW Test Reason : DYSPNEA Blood Pressure : / mmHG Vent. Rate : 084 BPM Atrial Rate : 084 BPM P-R Int : 104 ms QRS Dur : 070 ms QT Int : 354 ms P-R-T Axes : 071 067 078 degrees QTc Int : 418 ms Sinus rhythm with short MS Otherwise normal ECG When compared with ECG of 12-APR-2018 15:51, MS interval has decreased Nonspecific T wave abnormality no longer evident in Inferior leads Nonspecific T wave abnormality, improved in Lateral leads Referred By: Confirmed By: Imaging FACILITY: [facility] PATIENT NAME: Erin Mckay : 1970 MR: [id number] V: [id number] EXAM DATE: ORDERING PHYSICIAN: MASOOD JIMENES TECHNOLOGIST: [facility] [place] Patient: Erin Mckay : 1970 Visit/Account:[id number] Date of Sevice: 10/23/2018 Examination: CHEST SINGLE AP Comparison: 06/27/2014 History: Shortness of breath. Findings: Cardiac and hilar contour size is normal. Mild peribronchial inflammation. No consolidation or nodule. No pneumothorax, edema, or effusion. Osseous structures are intact. IMPRESSION: Mild peribronchial inflammation is suggestive of an acute versus chronic bronchitis. Report Dictated By: Jeevan Martinez MD at 10/23/2018 8:57 PM Report E-Signed By: Jeevan Martinez MD at 10/23/2018 8:58 PM [id number] Pre-Admit Course Medical Record Review: Yes Assessment and Plan Problems: (1) Acute bronchitis with asthma with acute exacerbation Status: Acute Assessment & Plan: She was given solumedrol 125mg in ER. Will continue solumedrol at 60mg q 6 hours. Continue albuterol nebs q 6 hours scheduled and q 2 hours prn. Continue O2 to keep sats 90% or greater. (2) Essential hypertension Status: Chronic Assessment & Plan: Continue propranolol ER 160mg daily. (3) Edema Status: Chronic Assessment & Plan: Continue Lasix 40mg daily. (4) DM w/o complication type II Status: Chronic Assessment & Plan: Will monitor BS and use SSI prn as her blood sugars may increase due to steroids. She is currently diet controlled at home. (5) GERD (gastroesophageal reflux disease) Status: Chronic Assessment & Plan: On omeprazole at home. Will place on pantoprazole here. (6) Severe recurrent major depression without psychotic features Status: Chronic Assessment & Plan: Continue prazosin 6mg at HS, trazodone 400mg at HS, Effexor XR 450mg daily, memantine 10mg bid and bupropion XL 300mg daily. Will add Ativan tonight for anxiety and insomnia associated with IV Solu Medrol. Time Spent on Plan of Care: < 30 min Venous Thromboembolism Antithrombotics Is Pt On Any Antithrombotics?: No Prophylaxis Tx Contraindicated Pharmacological Contraindicati: Pt at Low Risk for VTE Exam Sepsis Risk: No Definite Risk JUAN IGLESIAS MD Oct 23, 2018 23:43
[2018-10-23] MEDS: LORazepam 0.5 MG TAB PO PRN (23:53)
[2018-10-24 00:04] VITALS: BP 112/86
[2018-10-24 02:10] VITALS: BP 128/85
[2018-10-24] MEDS: methylPREDNIS SUCC 125 MG/2ML IVP SCH ×4 (02:11→19:40)
[2018-10-24] MEDS: ALBUTEROL 2.5 MG/3 ML NEB NEB SCH ×4 (05:39→22:49)
[2018-10-24 07:28] VITALS: BP 132/98
[2018-10-24] MEDS: FUROSEMIDE 40 MG TAB PO SCH (08:43)
[2018-10-24] MEDS: CHOLECALCIFEROL 1000 UNIT TAB PO SCH (08:45)
[2018-10-24] MEDS: MEMANTINE HCL 5 MG TAB PO SCH ×2 (08:45→21:11)
[2018-10-24] MEDS: PROPRANOLOL HCL LA 80 MG CAPCR PO SCH (08:46)
[2018-10-24] MEDS: INSULIN HUM LISPRO 100 UN/ML 3 ML VIAL SUBQ PRN ×2 (08:46→17:22)
[2018-10-24] MEDS: buPROPion XL 150 MG TABCR PO SCH (08:46)
[2018-10-24] MEDS: VENLAFAXINE XR 75 MG CAPCR PO SCH (08:47)
[2018-10-24 10:05] VITALS: Ht 160 cm; Wt 92.8 kg
[2018-10-24 10:40] VITALS: BP 104/65
[2018-10-24] MEDS: LORazepam 0.5 MG TAB PO PRN (10:56)
[2018-10-24] MEDS: DIAZEPAM 5 MG TAB PO PRN ×2 (14:00→21:17)
[2018-10-24 14:07] VITALS: BP 111/68
[2018-10-24] MEDS ORDERED: IBUPROFEN 800 MG TAB PO ONE (14:15)
--- NOTE | 2018-10-24 14:44 | Hospitalist Progress Note ---
Subjective Progress Notes Subjective 48F admitted for asthma exacerbation. BEATRIZ overnight, O2 requirements improving, remains on supplemental O2 and IV steroid. Patient Complains of: Respiratory: Cough, Shortness of Breath, Wheezing; No: Congestion Physical Exam Vital Signs Date Time Temp Pulse Resp B/P (MAP) Pulse Ox O2 Delivery O2 Flow Rate FiO2 10/24/18 14:09 94 Nasal Cannula 1.0 10/24/18 14:07 99.1 87 20 111/68 (82) Intake and Output 10/24/18 07:00 Intake Total 2000 ml Balance 2000 ml Intake Oral 1900 ml IV Total 100 ml # Voids 2 General Appearance: Alert, Awake, No Acute Distress Neuro: No Gross deficits ENT: Normal Cardiovascular: Normal Rhythm & Peripheral Pulses Respiratory: Clear to Auscultation GI: Soft and Non-Tender Extremities: Soft and Non Tender, Warm, Pulses, Perfused; No Edema Result Diagram: 10/23/18199910/23/181999 Monitor Interpretation: Normal Sinus Rhythm Assessment and Plan Problems: (1) Acute bronchitis with asthma with acute exacerbation Status: Acute Assessment & Plan: She was given solumedrol 125mg in ER. Will continue solumedrol at 60mg q 6 hours stop after 8pm dose and attempt to change to PO prednisone. Continue albuterol nebs q 6 hours scheduled and q 2 hours prn. Continue O2 to keep sats 90% or greater. (2) Essential hypertension Status: Chronic Assessment & Plan: Continue propranolol ER 160mg daily. (3) Edema Status: Chronic Assessment & Plan: Continue Lasix 40mg daily. (4) DM w/o complication type II Status: Chronic Assessment & Plan: Will monitor BS and use SSI prn as her blood sugars may increase due to steroids. She is currently diet controlled at home. (5) GERD (gastroesophageal reflux disease) Status: Chronic Assessment & Plan: On omeprazole at home. Will place on pantoprazole here. (6) Severe recurrent major depression without psychotic features Status: Chronic Assessment & Plan: Continue prazosin 6mg at HS, trazodone 400mg at HS, Effexor XR 450mg daily, memantine 10mg bid and bupropion XL 300mg daily. Significant anxiety likely exacerbated by steroid, will use some PRN Valium and hope to get her through the worst of it. Exam Sepsis Risk: Sepsis Risk STEPHANIE HUTCHINSON DO Oct 24, 2018 14:44
[2018-10-24] MEDS: traMADol 50 MG TAB PO PRN (17:22)
[2018-10-24 19:34] VITALS: BP 130/73
[2018-10-24] MEDS ORDERED: PRAZOSIN HCL 1 MG CAP PO SCH (21:00)
[2018-10-24] MEDS ORDERED: PRAZOSIN HCL 5 MG CAP PO SCH (21:00)
[2018-10-24] MEDS ORDERED: traZODone HCL 50 MG TAB PO SCH (21:00)
[2018-10-25 03:48] VITALS: BP 94/66
[2018-10-25] MEDS: ALBUTEROL 2.5 MG/3 ML NEB NEB SCH ×2 (05:38→11:51)
[2018-10-25 07:27] VITALS: BP 105/62
[2018-10-25] MEDS: traMADol 50 MG TAB PO PRN (07:48)
[2018-10-25] MEDS ORDERED: ALBU2.5V36 NEB (08:33)
[2018-10-25] MEDS ORDERED: PRED20TA6 PO (08:33)
[2018-10-25] MEDS ORDERED: FLUT1DIS27 IH (08:37)
[2018-10-25] MEDS: CHOLECALCIFEROL 1000 UNIT TAB PO SCH (08:50)
[2018-10-25] MEDS: FUROSEMIDE 40 MG TAB PO SCH (08:50)
[2018-10-25] MEDS: PROPRANOLOL HCL LA 80 MG CAPCR PO SCH (08:50)
[2018-10-25] MEDS: buPROPion XL 150 MG TABCR PO SCH (08:50)
[2018-10-25] MEDS: MEMANTINE HCL 5 MG TAB PO SCH (08:50)
[2018-10-25] MEDS: VENLAFAXINE XR 75 MG CAPCR PO SCH (08:50)
[2018-10-25] MEDS ORDERED: predniSONE 20 MG TAB PO SCH (09:00)
--- NOTE | 2018-10-25 10:55 | Hospitalist Depart ---
Discharge Summary Reason for Hosp/Final Diag: (1) Acute bronchitis with asthma with acute exacerbation Status: Acute Hospital Course & Plan: She was started on IV Solu-Medrol and albuterol nebulizer therapy and supplemental O2 to keep saturations 90% or greater. She improved with respect to her airway reactivity and wheezing. We did transition her to oral prednisone. Her CXR showed some possible acute bronchitis changes, but she did improve without antibiotics. She was still requiring 0.5-1L oxygen, especially with activities. She will be discharged on oxygen. She has not been on a maintenance medication up to this point. We will start her on Advair 50/100 one inhalation BID. She will have close follow up with her primary care provider within the next week. (2) Essential hypertension Status: Chronic Hospital Course & Plan: Continue propranolol ER 160mg daily. (3) Edema Status: Chronic Hospital Course & Plan: Continue Lasix 40mg daily. (4) DM w/o complication type II Status: Chronic Hospital Course & Plan: She is currently diet controlled at home. Her glucoses were modestly elevated with the steroids. She did not require any additional therapy at this time. (5) GERD (gastroesophageal reflux disease) Status: Chronic Hospital Course & Plan: On omeprazole at home. (6) Severe recurrent major depression without psychotic features Status: Chronic Hospital Course & Plan: Continue prazosin 6mg at HS, trazodone 400mg at HS, Effexor XR 450mg daily, memantine 10mg bid and bupropion XL 300mg daily. Significant anxiety likely exacerbated by the steroids. Departure Weight (Pounds): 204 Weight (Ounces): 8.0 Result Diagram: 10/23/18199910/23/181999 Item Value Date Time Human Chorionic Gonadotropin, Qual Negative 10/23/181999 B-Type Natriuretic Peptide 34 pg/ml 10/23/181999 Albumin 4.5 g/dl 10/23/181999 Total Protein 8.2 g/dl 10/23/181999 Troponin I < 0.012 ng/ml 10/23/181999 Alkaline Phosphatase 100 U/L 10/23/181999 Alanine Aminotransferase (ALT/SGPT) 41 U/L 10/23/181999 Aspartate Amino Transf (AST/SGOT) 38 U/L H 10/23/181999 Total Bilirubin 0.4 mg/dl 10/23/181999 Calcium Level 10.7 mg/dl H 10/23/181999 Influenza Virus Type B (PCR) Negative 10/23/181950 Influenza Virus Type A (PCR) Negative 10/23/181950 Imaging PATIENT NAME: Erin Mckay : 1970 MR: [id number] V: [id number] EXAM DATE: ORDERING PHYSICIAN: MASOOD JIMENES TECHNOLOGIST: Location: [facility] [place] Patient: Erin Mckay : 1970 Visit/Account:[id number] Date of Sevice: 10/23/2018 Examination: CHEST SINGLE AP Comparison: 06/27/2014 History: Shortness of breath. Findings: Cardiac and hilar contour size is normal. Mild peribronchial inflammation. No consolidation or nodule. No pneumothorax, edema, or effusion. Osseous structures are intact. IMPRESSION: Mild peribronchial inflammation is suggestive of an acute versus chronic bronchitis. Report Dictated By: Jeevan Martinez MD at 10/23/2018 8:57 PM Report E-Signed By: Jeevna Martinez MD at 10/23/2018 8:58 PM [id number] EKG PATIENT NAME: ERIN MCKAY : [id number] MR: [id number] V: [id number] EXAM DATE: ORDERING PHYSICIAN: MASOOD JIMENES TECHNOLOGIST: DMNicky Test Reason : DYSPNEA Blood Pressure : / mmHG Vent. Rate : 084 BPM Atrial Rate : 084 BPM P-R Int : 104 ms QRS Dur : 070 ms QT Int : 354 ms P-R-T Axes : 071 067 078 degrees QTc Int : 418 ms Interpretation difficult due to baseline interference Sinus rhythm with short DE interval Otherwise normal ECG When compared with ECG of 12-APR-2018 15:51, DE interval has decreased Confirmed by JUAN STYLES ([id number]) on 10/24/2018 6:34:47 AM Referred By: Confirmed By:JUAN STYLES 07 Condition: Improved Discharge: Home Time Spent: > 30 min Discharge Instructions Home Meds Active Scripts Fluticasone/Salmeterol (ADVAIR 100-50 DISKUS) 1 Each Disk.w.dev, 1 EACH IH BIDR, #1 DISK 1 Refill Prov:CHERYL IGLESIAS MD 10/25/18 Prednisone (PREDNISONE) 20 Mg Tablet, 20 MG PO QDAY, #5 TAB 0 Refills One tab daily for three days, then one-half tab daily for four days, then off. Prov:CHERYL IGLESIAS MD 10/25/18 Omeprazole (OMEPRAZOLE) 20 Mg Capsule.dr, 1 CAP PO QDAY, #90 CAP 4 Refills Prov:RAKESH GOLDEN MD 07/24/16 Reported Medications Memantine HCl 10 MG (Memantine HCl 10 MG) 10 Mg Tablet, 10 MG PO BID 10/23/18 Venlafaxine Hcl (VENLAFAXINE HCL ER) 150 Mg Tab.er.24, 450 MG PO QDAY 10/23/18 Trazodone Hcl (TRAZODONE HCL) 100 Mg Tablet, 100 MG PO QHS, TAB Take with a 300mg tablet for a total of 400mg at HS. 10/23/18 Prazosin Hcl (PRAZOSIN HCL) 2 Mg Capsule, 6 MG PO QHS, CAPSULE 10/23/18 Bupropion Hcl (BUPROPION HCL SR) 150 Mg Tablet.er, 450 MG PO DAILY 10/23/18 Furosemide (FUROSEMIDE) 20 Mg Tablet, 1 TAB PO QPM PRN for SEE COMMENT, TAB 10/23/18 Trazodone Hcl (TRAZODONE HCL) 300 Mg Tablet, 300 MG PO QHS Take with a 100mg tablet for a total of 400mg at HS. 10/23/18 Furosemide (FUROSEMIDE) 40 Mg Tablet, 1 TAB PO QDAY, TAB 04/15/18 Propranolol Hcl (PROPRANOLOL HCL) 160 Mg Cap.sa.24h, 1 CAP PO QDAY 04/15/18 Orion-3 Fatty Acids/Fish Oil (FISH OIL 1,000 MG CAPSULE) 1 Each Capsule, 1 CAP PO QDAY, CAPSULE 07/24/16 Cholecalciferol (Vitamin D3) (VITAMIN D) 1,000 Unit Tablet, 1 TAB PO QDAY 07/11/16 Multivitamin (MULTI VITAMIN DAILY) 1 Each Tablet, 1 TAB PO QDAY 07/11/16 Discontinued Reported Medications Venlafaxine Hcl (VENLAFAXINE HCL ER) 75 Mg Tab.er.24, 75 MG PO QDAY 10/23/18 Bupropion HCl (Bupropion HCl ER) 200 Mg Tablet.er, 350 MG PO QDAY 10/23/18 Venlafaxine Hcl (VENLAFAXINE HCL ER) 225 Mg Tab.er.24, 225 MG PO QDAY 10/23/18 Prazosin Hcl (PRAZOSIN HCL) 5 Mg Capsule, 6 MG PO QDAY, CAPSULE 10/23/18 Venlafaxine Hcl (EFFEXOR XR) 75 Mg Cap.er.24h, 75 MG PO TID 10/23/18 Prazosin Hcl (PRAZOSIN HCL) 2 Mg Capsule, 2 CAP PO QDAY, CAPSULE 04/15/18 Clonidine Hcl (CATAPRES) 0.1 Mg Tablet, 0.5 TAB PO BID, TAB 03/04/18 Lamotrigine (LAMICTAL) 25 Mg Tablet, 3 TAB PO QDAY 07/11/16 Venlafaxine Hcl (EFFEXOR XR) 150 Mg Cap.er.24h, 3 CAP PO QDAY 06/30/16 Trazodone Hcl (TRAZODONE HCL) 300 Mg Tablet, 1 TAB PO QHS 04/30/15 Follow up Referrals: Internal Medicine @ [facility] with RAKESH GOLDEN MD Diet: Diabetic Activity: As Tolerated, No Exertion Special Instructions: Home oxygen at 1L at rest and increase to 3L with activity. Follow up with Primary Care Provider in next 5-7 days or sooner if any problems. Copies to: RAKESH GOLDEN MD; ROSS GAMA ; Venous Thromboembolism Antithrombotics Is Pt On Any Antithrombotics?: No CHERYL IGLESIAS MD Oct 25, 2018 10:55
[2018-10-25 11:34] VITALS: BP 116/74
== END 2018-10-25 12:10 | disposition home or self-care (01) | DRG 202 ==
LOC: ER 19:52 → MED 21:33
PROVIDERS: ADMIT Internal Medicine; ATTEND Internal Medicine
DX: J45.901 Unspecified asthma with (acute) exacerbation (principal); F33.9 Major depressive disorder, recurrent, unspecified; E11.9 Type 2 diabetes mellitus without complications; K21.9 Gastro-esophageal reflux disease without esophagitis; E28.2 Polycystic ovarian syndrome; J20.9 Acute bronchitis, unspecified; I10 Essential (primary) hypertension; F32.9 Major depressive disorder, single episode, unspecified; G43.909 Migraine, unspecified, not intractable, without status migrainosus; T38.0X5A Adverse effect of glucocorticoids and synthetic analogues, initial encounter; E11.65 Type 2 diabetes mellitus with hyperglycemia; Z88.0 Allergy status to penicillin; Z91.040 Latex allergy status; Z88.8 Allergy status to other drugs, medicaments and biological substances; Z90.49 Acquired absence of other specified parts of digestive tract
CPT/HCPCS: 36416; 71045; 82040; 82247; 82310; 82374; 82435; 82565; 82947; 82948; 83880; 84075; 84132; 84155; 84295; 84450; 84460; 84484; 84520; 84703; 85025; 87502; 93005; 94640; 96365; 96375; 99284; J2930; J3475; J7512; J7611; J7613; J7644

== ENCOUNTER 2018-11-19 16:36 | Emergency (ER) | payer OTHER ==
[2018-10-24 10:05] VITALS: BMI 36.1
[~2018-11-19 16:36] MED LIST changes: +ALBU2.5V36 NEB; +BUPR-136 PO; +BUPR200T34 PO; +FLUT1DIS27 IH; +FURO-45 PO; +MEMA10TA3 PO; +PRAZ5CAP16 PO; +VENL150T10 PO; +VENL225T5 PO; +VENL75CA58 PO; +VENL75TA98 PO
--- NOTE | 2018-11-19 17:04 | ER Report ---
History and Physical Time Seen By MD: 17:03 HPI/ROS CHIEF COMPLAINT: Headache HISTORY OF PRESENT ILLNESS: This is a 48-year-old female presents to the emergency department for a headache. Patient states that today she had her ECT therapy in [place]. Typically she takes Tylenol before and then will take hydrocodone after and the headache resolves. However today the headache has been intensifying, this is an unusual headache, she does have a history of migraines however this is not a typical migraine type of headache. It is not the usual p attern after the ECT. She is had nausea no vomiting. No diarrhea. She is photophobic, no other visual changes. She was recently discharged from the hospital for asthma exacerbation, she states that her oxygen continues to be low at home as well. No fevers or chills. No rashes. No meningismus. REVIEW OF SYSTEMS: Constitutional: No fever, no chills. Eyes: No discharge. ENT: No sore throat. Cardiovascular: No chest pain, no palpitations. Respiratory: As above. Gastrointestinal: No abdominal pain, no vomiting. Genitourinary: No hematuria. Musculoskeletal: No back pain. Skin: No rashes. Neurological: As above. Allergies: Coded Allergies: calcium carbonate (Verified Allergy, Intermediate, 07/02/16) amoxicillin (Verified Allergy, Mild, RASH, 04/30/15) aspirin (Verified Allergy, Mild, BLODDY NOSE , 04/30/15) fluconazole (Verified Allergy, Unknown, 04/30/15) latex (Verified Allergy, Unknown, 04/30/15) Home Meds Active Scripts Fluticasone/Salmeterol (ADVAIR 100-50 DISKUS) 1 Each Disk.w.dev, 1 EACH IH BIDR, #1 DISK 1 Refill Prov:CHERYL IGLESIAS MD 10/25/18 Albuterol Sulfate 0.083% (ALBUTEROL SULFATE 0.083%) 2.5 Mg/3 Ml Vial.neb, 2.5 MG NEB Q2HR PRN for SHORTNESS OF BREATH, #100 VIAL 1 Refill Prov:CHERYL IGLESIAS MD 10/25/18 Prednisone (PREDNISONE) 20 Mg Tablet, 20 MG PO QDAY, #5 TAB 0 Refills One tab daily for three days, then one-half tab daily for four days, then off. Prov:CHERYL IGLESIAS MD 10/25/18 Omeprazole (OMEPRAZOLE) 20 Mg Capsule.dr, 1 CAP PO QDAY, #90 CAP 4 Refills Prov:RAKESH GOLDEN MD 07/24/16 Reported Medications Memantine HCl 10 MG (Memantine HCl 10 MG) 10 Mg Tablet, 10 MG PO BID 10/23/18 Venlafaxine Hcl (VENLAFAXINE HCL ER) 150 Mg Tab.er.24, 450 MG PO QDAY 10/23/18 Trazodone Hcl (TRAZODONE HCL) 100 Mg Tablet, 100 MG PO QHS, TAB Take with a 300mg tablet for a total of 400mg at HS. 10/23/18 Prazosin Hcl (PRAZOSIN HCL) 2 Mg Capsule, 6 MG PO QHS, CAPSULE 10/23/18 Bupropion Hcl (BUPROPION HCL SR) 150 Mg Tablet.er, 450 MG PO DAILY 10/23/18 Furosemide (FUROSEMIDE) 20 Mg Tablet, 1 TAB PO QPM PRN for SEE COMMENT, TAB 10/23/18 Trazodone Hcl (TRAZODONE HCL) 300 Mg Tablet, 300 MG PO QHS Take with a 100mg tablet for a total of 400mg at HS. 10/23/18 Furosemide (FUROSEMIDE) 40 Mg Tablet, 1 TAB PO QDAY, TAB 04/15/18 Propranolol Hcl (PROPRANOLOL HCL) 160 Mg Cap.sa.24h, 1 CAP PO QDAY 04/15/18 Manor-3 Fatty Acids/Fish Oil (FISH OIL 1,000 MG CAPSULE) 1 Each Capsule, 1 CAP PO QDAY, CAPSULE 07/24/16 Cholecalciferol (Vitamin D3) (VITAMIN D) 1,000 Unit Tablet, 1 TAB PO QDAY 07/11/16 Multivitamin (MULTI VITAMIN DAILY) 1 Each Tablet, 1 TAB PO QDAY 07/11/16 Past Medical/Surgical History The patient has a past medical and surgical history of migraine headaches, symptomatic tachycardia, stress-induced tachycardia, hypertension, asthma, GERD, carotid disease, cholecystectomy, wears glasses, had Lasik, enq-[id number]-uwmuzkfkh diabetic, depression, uterine ablation, tubal ligation, right knee surgery, ulnar nerve repair, tonsillectomy. Reviewed Nurses Notes: Yes Hx Smoking: No Smoking Status: Never Smoker Exposure to Second Hand Smoke?: No Hx Substance Use Disorder: No Hx Alcohol Use: Yes Constitutional Vital Sign - Last 24 Hours 11/19/18 11/19/18 11/19/18 11/19/18 16:58 17:06 17:09 17:22 Temp 98.6 Pulse 80 79 Resp 18 B/P (MAP) 138/101 (113) 138/101 Pulse Ox 95 68 O2 Delivery Room Air O2 Flow Rate 3.0 11/19/18 11/19/18 11/19/18 11/19/18 17:30 17:36 18:00 18:06 Pulse 86 81 B/P (MAP) 115/63 (80) 114/68 (83) Pulse Ox 96 97 11/19/18 11/19/18 11/19/18 11/19/18 18:20 18:30 18:50 19:00 Pulse 76 76 72 Resp 16 B/P (MAP) ???/??? (1665) Pulse Ox 96 93 11/19/18 11/19/18 11/19/18 11/19/18 19:00 19:07 19:20 19:30 Pulse 80 78 Resp 16 B/P (MAP) 109/80 (90) 106/73 (84) Pulse Ox 93 11/19/18 19:50 Pulse 81 Pulse Ox 92 Physical Exam General Appearance: The patient is alert, has no immediate need for airway protection and no signs of toxicity, tearful, in darkened room. Eyes: Pupils equal and no pallor or injection. ENT, Mouth: Mucous membranes are moist. Respiratory: There are no retractions, lungs are clear to auscultation. Cardiovascular: Regular rate and rhythm. Gastrointestinal: Abdomen is soft and non tender, no masses, bowel sounds normal. Neurological: Alert and oriented 4. Moving all extremities. Following all commands. No focal neuro deficits. Skin: Warm and dry, no rashes. Musculoskeletal: Neck is supple non tender. Extremities are nontender, nonswollen and have full range of motion. DIFFERENTIAL DIAGNOSIS: After history and physical exam differential diagnosis was considered for headache including but not limited to subarachnoid h emorrhage, migraine headache, tension headache and infectious causes such as meningitis, pharyngitis and sinusitis. Medical Decision Making Data Points Result Diagram: 11/19/18 1704 11/19/18 170 Laboratory Hematology Test 11/19/18 17:04 Red Blood Count 5.10 M/uL (4.17-5.56) Mean Corpuscular Volume 92.3 fL (80.0-96.0) Mean Corpuscular Hemoglobin 30.7 pg (26.0-33.0) Mean Corpuscular Hemoglobin Concent 33.3 g/dL (32.0-36.0) Red Cell Distribution Width 13.5 % (11.5-14.5) Mean Platelet Volume 9.9 fL (7.2-11.1) Neutrophils (%) (Auto) 60.3 % (39.4-72.5) Lymphocytes (%) (Auto) 26.9 % (17.6-49.6) Monocytes (%) (Auto) 7.5 % (4.1-12.4) Eosinophils (%) (Auto) 4.6 % (0.4-6.7) Basophils (%) (Auto) 0.7 % (0.3-1.4) Nucleated RBC Relative Count (auto) 0.1 /100WBC Neutrophils # (Auto) 6.6 K/uL (2.0-7.4) Lymphocytes # (Auto) 3.0 K/uL (1.3-3.6) Monocytes # (Auto) 0.8 K/uL (0.3-1.0) Eosinophils # (Auto) 0.5 K/uL (0.0-0.5) Basophils # (Auto) 0.1 K/uL (0.0-0.1) Nucleated RBC Absolute Count (auto) 0.01 K/uL Sodium Level 138 mmol/L (137-145) Potassium Level 4.4 mmol/L (3.5-5.0) Chloride Level 103 mmol/L (98-107) Carbon Dioxide Level 29 mmol/L (22-31) Blood Urea Nitrogen 13 mg/dl (7-18) Creatinine 0.70 mg/dl (0.52-1.04) Glomerular Filtration Rate Calc > 60.0 Random Glucose 103 mg/dl (75-110) Calcium Level 9.4 mg/dl (8.4-10.2) Total Bilirubin 0.4 mg/dl (0.2-1.3) Aspartate Amino Transf (AST/SGOT) 38 U/L (0-35) Alanine Aminotransferase (ALT/SGPT) 57 U/L (0-56) Alkaline Phosphatase 82 U/L (0-126) Total Protein 7.3 g/dl (6.3-8.2) Albumin 4.1 g/dl (3.5-5.0) Chemistry Test 11/19/18 17:04 White Blood Count 11.0 k/uL (4.5-11.0) Red Blood Count 5.10 M/uL (4.17-5.56) Hemoglobin 15.6 g/dL (12.0-16.0) Hematocrit 47.0 % (34.0-47.0) Mean Corpuscular Volume 92.3 fL (80.0-96.0) Mean Corpuscular Hemoglobin 30.7 pg (26.0-33.0) Mean Corpuscular Hemoglobin Concent 33.3 g/dL (32.0-36.0) Red Cell Distribution Width 13.5 % (11.5-14.5) Platelet Count 295 K/uL (150-450) Mean Platelet Volume 9.9 fL (7.2-11.1) Neutrophils (%) (Auto) 60.3 % (39.4-72.5) Lymphocytes (%) (Auto) 26.9 % (17.6-49.6) Monocytes (%) (Auto) 7.5 % (4.1-12.4) Eosinophils (%) (Auto) 4.6 % (0.4-6.7) Basophils (%) (Auto) 0.7 % (0.3-1.4) Nucleated RBC Relative Count (auto) 0.1 /100WBC Neutrophils # (Auto) 6.6 K/uL (2.0-7.4) Lymphocytes # (Auto) 3.0 K/uL (1.3-3.6) Monocytes # (Auto) 0.8 K/uL (0.3-1.0) Eosinophils # (Auto) 0.5 K/uL (0.0-0.5) Basophils # (Auto) 0.1 K/uL (0.0-0.1) Nucleated RBC Absolute Count (auto) 0.01 K/uL Glomerular Filtration Rate Calc > 60.0 Calcium Level 9.4 mg/dl (8.4-10.2) Total Bilirubin 0.4 mg/dl (0.2-1.3) Aspartate Amino Transf (AST/SGOT) 38 U/L (0-35) Alanine Aminotransferase (ALT/SGPT) 57 U/L (0-56) Alkaline Phosphatase 82 U/L (0-126) Total Protein 7.3 g/dl (6.3-8.2) Albumin 4.1 g/dl (3.5-5.0) EKG/Imaging Imaging Location: [facility] Patient: Erin Mckay : 1970 Visit/Account:[id number] Date of ice: 11/19/[address] scan without contrast COMPARISONS: Head CT scan without contrast dated March 04, 2018 ADDITIONAL PERTINENT HISTORY: Headache TECHNIQUE: Multiple axial images were obtained from the skull base to the vertex without IV contrast. One of the following dose optimization techniques was utilized in the performance of this exam: Automated exposure control; adjustment of the mA and/or kV according to the patient's size; or use of an iterative reconstruction technique. Specific details can be referenced in the facility's radiology CT exam operational policy. FINDINGS: Midline shift: Negative Ventricles: Negative Brain parenchyma: Negative Extra-axial spaces: Negative Intracranial vasculature: Negative Osseous structures: Negative Paranasal sinuses and mastoid air cells: Moderate lobular mucosal thickening involving the right maxillary sinus slightly increased from previous exam. Surrounding soft tissues and orbits: Negative IMPRESSION: 1. Mild underlying paranasal sinus disease slightly increased from previous exam. 2. No evidence of acute intracranial pathology. Report Dictated By: James Veras MD at 11/19/2018 6:44 PM Report E-Signed By: James Veras MD at 11/19/2018 6:46 PM WSN:[id number] ED Course/Re-evaluation Clinical Indication for ER IV: Hydration, IV Access ED Course The patient was admitted to room. A history of physical were obtained. Differential diagnoses were considered. As the patient had ECT therapy today and has had a persistent headache that has increased in intensity, an IV was started. A CBC, CMP were obtained. A CT of the head was negative for any acute findings. A 1 L normal saline bolus was given. 12.5 mg IV Phenergan, 4 mg IV Zofran, 5 mg IV Decadron, 50 mg IV Benadryl, this did provide some relief, a DuoNeb did not seem to improve the patient's aeration. She does have oxygen and CPAP at home for her sleep apnea. Patient was given 4 mg IV morphine, this did seem to improve the patient's headache, she was also given a take home pack for tramadol. I did review the negative CT results with the patient. She is now feeling better, I did recommend going home, resting as much as she can, take her regular medications as prescribed, use tramadol for severe pain. The patient expressed understanding and was discharged home. She was also encouraged to follow-up with her primary care provider next week for reevaluation. Return to the ER for any other concerns, patient was in agreement with this plan of care. Decision to Disposition Date: Nov 19, 2018 Decision to Disposition Time: 19:43 Depart Departure Latest Vital Signs Vital Signs Date Time Temp Pulse Resp B/P (MAP) Pulse Ox O2 Delivery O2 Flow Rate FiO2 11/19/18 19:50 81 92 11/19/18 19:30 106/73 (84) 11/19/18 19:07 16 11/19/18 17:22 3.0 11/19/18 17:09 98.6 Room Air Impression: Primary Impression: Headache Condition: Improved Disposition: HOME OR SELF-CARE Referrals: RAKESH GOLDEN MD (PCP) 1 Week Patient Instructions: Acute Headache (ED) Additional Instructions: No concerning findings on the laboratory studies. No concerning findings on the CT of your brain. Please go home, try to get as much as rest as possible. Take your usual headache regimen, if this is unsuccessful try the tramadol. Please drink plenty of water. Follow-up with your primary care provider next week for reevaluation. Return to the emergency department for any other concerns or worsening symptoms. Problem Qualifiers Primary Impression: Headache Headache type: unspecified Headache chronicity pattern: acute headache Intractability: not intractable Qualified Codes: R51 - Headache MELISSA WELLERP-BC Nov 19, 2018 17:04
[2018-11-19] MEDS ORDERED: NS(*) 0.9% 1000 ML BAG 1,000 ML IV ONE (17:13)
[2018-11-19] MEDS ORDERED: diphenhydrAMINE 50 MG/ML VIAL IVP ONE (17:15)
[2018-11-19] MEDS ORDERED: DEXAMETHASONE SOD PHOS 10MG/ML IVP ONE (17:15)
[2018-11-19] MEDS ORDERED: ONDANSETRON 4 MG/2 ML VIAL IVP ONE (17:15)
[2018-11-19] MEDS ORDERED: PROMETHAZINE 25 MG/ML 1 ML AMP IVP ONE (17:15)
[2018-11-19] MEDS ORDERED: MAGNESIUM SUL* 2 GM/50 ML IVPB 50 ML IVPB ONE (17:15)
[2018-11-19 17:32] LABS: PLATELET COUNT, AUTOMATED 295 K/uL (150-450)
[2018-11-19] MEDS ORDERED: ALBUTEROL/IPRATROPIUM 3 ML NEB NEB ONE (18:05)
--- NOTE | 2018-11-19 18:50 | RADIOLOGY IMAGING REPORT ---
FACILITY: [facility] [place] PATIENT NAME: Erin Mckay : 1970 MR: [id number] V: [id number] EXAM DATE: ORDERING PHYSICIAN: MELISSA WELLER TECHNOLOGIST: Location: [facility] [place] Patient: Erin Mckay : 1970 Visit/Account:[id number] Date of Sevice: 11/19/[address] scan without contrast COMPARISONS: Head CT scan without contrast dated March 04, 2018 ADDITIONAL PERTINENT HISTORY: Headache TECHNIQUE: Multiple axial images were obtained from the skull base to the vertex without IV contrast . One of the following dose optimization techniques was utilized in the performance of this exam: Aut omated exposure control; adjustment of the mA and/or kV according to the patient's size; or use of an iterative reconstruction technique. Specific details can be referenced in the facility's radiology CT exam operational policy. FINDINGS: Midline shift: Negative Ventricles: Negative Brain parenchyma: Negative Extra-axial spaces: Negative Intracranial vasculature: Negative Osseous structures: Negative Paranasal sinuses and mastoid air cells: Moderate lobular mucosal thickening involving the right max illary sinus slightly increased from previous exam. Surrounding soft tissues and orbits: Negative IMPRESSION: 1. Mild underlying paranasal sinus disease slightly increased from previous exam. 2. No evidence of acute intracranial pathology. Report Dictated By: James Veras MD at 11/19/2018 6:44 PM Report E-Signed By: James Veras MD at 11/19/2018 6:46 PM WSN:[id number]
[2018-11-19] MEDS ORDERED: MORPHINE 4 MG/ML SDV IVP ONE (18:55)
[2018-11-19 19:30] VITALS: BP 106/73
[2018-11-19] MEDS ORDERED: traMADol 50 MG TAB TH 2 TAB/BOTTLE PO ONE (19:45)
== END 2018-11-19 19:56 | disposition home or self-care (01) ==
LOC: ER 17:14 → CANBEDREQ 18:02 → ER 19:56
DX: R51 Headache (principal); J45.909 Unspecified asthma, uncomplicated
CPT/HCPCS: 70450; 85025; 94640; 96365; 96375; 99284; C9399; J1100; J1200; J2270; J2405; J2550; J3475; J7030; J7620; 82040; 82247; 82310; 82374; 82435; 82565; 82947; 84075; 84132; 84155; 84295; 84450; 84460; 84520

== ENCOUNTER 2018-11-24 15:16 | Inpatient (IN) | payer OTHER ==
[~2018-11-24] VITALS: Ht 160 cm; Wt 94.1 kg
[2018-11-24] MEDS ORDERED: ALBUTEROL 2.5 MG/3 ML NEB NEB ONE ×2 (15:30→16:50)
[2018-11-24] MEDS ORDERED: methylPREDNIS SUCC 125 MG/2ML IVP ONE (15:30)
[2018-11-24] MEDS ORDERED: MAGNESIUM SUL* 2 GM/50 ML IVPB 50 ML IVPB ONE (15:30)
--- NOTE | 2018-11-24 15:37 | ER Report ---
History and Physical Time Seen By MD: 15:30 Hx. of Stated Complaint: SOB, COUGH HPI/ROS CHIEF COMPLAINT: Shortness of breath HISTORY OF PRESENT ILLNESS: Patient is a 48-year-old long history of asthma hyperreactive airway comes in with 2 days of worsening wheezing shortness of breath and tachypnea. Patient states that she's done home nebs and prednisone at home with little to no benefit. Patient has never been intubated but she has been hospitalized in the past. Denies any chest pain so she simply cannot catch her breath this was the worst exacerbation she said since she's had. Patient denies abdominal pain nausea vomiting diarrhea fever chills or additional complaints noted patient denies orthopnea and PND. Patient has no cough REVIEW OF SYSTEMS: Respiratory: No cough shortness of breath Cardiovascular: No chest pain, no palpitations. Gastrointestinal: No vomiting, no abdominal pain. Musculoskeletal: No back pain. Remainder of the 14 system rev: Yes Allergies: Coded Allergies: calcium carbonate (Verified Allergy, Intermediate, 07/02/16) amoxicillin (Verified Allergy, Mild, RASH, 04/30/15) aspirin (Verified Allergy, Mild, BLODDY NOSE , 04/30/15) fluconazole (Verified Allergy, Unknown, 04/30/15) latex (Verified Allergy, Unknown, 04/30/15) Home Meds Active Scripts Albuterol Sulfate 0.083% (ALBUTEROL SULFATE 0.083%) 2.5 Mg/3 Ml Vial.neb, 2.5 MG NEB Q2HR PRN for SHORTNESS OF BREATH, #100 VIAL 1 Refill Prov:CHERYL IGLESIAS MD 10/25/18 Omeprazole (OMEPRAZOLE) 20 Mg Capsule., 1 CAP PO QDAY, #90 CAP 4 Refills Prov:RAKESH GOLDEN MD 07/24/16 Reported Medications Memantine HCl 10 MG (Memantine HCl 10 MG) 10 Mg Tablet, 10 MG PO BID 10/23/18 Venlafaxine Hcl (VENLAFAXINE HCL ER) 150 Mg Tab.er.24, 450 MG PO QDAY 10/23/18 Trazodone Hcl (TRAZODONE HCL) 100 Mg Tablet, 100 MG PO QHS, TAB Take with a 300mg tablet for a total of 400mg at HS. 10/23/18 Prazosin Hcl (PRAZOSIN HCL) 2 Mg Capsule, 6 MG PO QHS, CAPSULE 1/12/19 Bupropion Hcl (BUPROPION HCL SR) 150 Mg Tablet.er, 450 MG PO DAILY 10/23/18 Furosemide (FUROSEMIDE) 20 Mg Tablet, 1 TAB PO QPM PRN for SEE COMMENT, TAB 10/23/18 Trazodone Hcl (TRAZODONE HCL) 300 Mg Tablet, 300 MG PO QHS Take with a 100mg tablet for a total of 400mg at HS. 10/23/18 Furosemide (FUROSEMIDE) 40 Mg Tablet, 1 TAB PO QDAY, TAB 04/15/18 Propranolol Hcl (PROPRANOLOL HCL) 160 Mg Cap.sa.24h, 1 CAP PO QDAY 04/15/18 [place]-3 Fatty Acids/Fish Oil (FISH OIL 1,000 MG CAPSULE) 1 Each Capsule, 1 CAP PO QDAY, CAPSULE 07/24/16 Cholecalciferol (Vitamin D3) (VITAMIN D) 1,000 Unit Tablet, 1 TAB PO QDAY 07/11/16 Multivitamin (MULTI VITAMIN DAILY) 1 Each Tablet, 1 TAB PO QDAY 07/11/16 Discontinued Scripts Fluticasone/Salmeterol (ADVAIR 100-50 DISKUS) 1 Each Disk.w.dev, 1 EACH IH BIDR, #1 DISK 1 Refill Prov:CHERYL IGLESIAS MD 10/25/18 Prednisone (PREDNISONE) 20 Mg Tablet, 20 MG PO QDAY, #5 TAB 0 Refills One tab daily for three days, then one-half tab daily for four days, then off. Prov:CHERYL IGLESIAS MD 10/25/18 Reviewed Nurses Notes: Yes Old Medical Records Reviewed: Yes Hx Smoking: No Smoking Status: Never Smoker Exposure to Second Hand Smoke?: No Hx Substance Use Disorder: No Hx Alcohol Use: Yes Constitutional Vital Sign - Last 24 Hours 11/24/18 11/24/18 11/24/18 11/24/18 15:21 15:42 15:43 15:43 Temp 98.5 Pulse 121 117 Resp 30 24 B/P (MAP) 117/103 Pulse Ox 81 94 O2 Delivery Room Air Nasal Cannula O2 Flow Rate 3.0 3.5 Physical Exam General Appearance: The patient is alert, has no immediate need for airway protection and no current signs of toxicity. No apparent distress Eyes: Pupils equal and round no injection. Respiratory: Patient is tachypneic using accessory muscle utilization some mild diaphragmatic breathing coarse breath sounds throughout all lung jackson with an wheeze noted in all lung jackson Cardiac: regular rate and rhythm [ ] Gastrointestinal: Abdomen is soft and non tender, no masses, bowel sounds normal. Musculoskeletal: Neck: Neck is supple and non tender. Extremities have full range of motion and are non tender. Skin: No rashes or lesions. [ ] DIFFERENTIAL DIAGNOSIS: After history and physical exam differential diagnosis was considered for asthma exacerbation COPD pulmonary emboli cardiac issue Medical Decision Making Data Points Result Diagram: 11/24/18 1531 11/24/18 1531 Laboratory Hematology Test 11/24/18 15:31 11/24/18 16:07 Red Blood Count 4.84 M/uL (4.17-5.56) Mean Corpuscular Volume 92.4 fL (80.0-96.0) Mean Corpuscular Hemoglobin 30.8 pg (26.0-33.0) Mean Corpuscular Hemoglobin Concent 33.3 g/dL (32.0-36.0) Red Cell Distribution Width 13.6 % (11.5-14.5) Mean Platelet Volume 9.8 fL (7.2-11.1) Neutrophils (%) (Auto) 72.2 % (39.4-72.5) Lymphocytes (%) (Auto) 13.0 % (17.6-49.6) Monocytes (%) (Auto) 10.4 % (4.1-12.4) Eosinophils (%) (Auto) 3.8 % (0.4-6.7) Basophils (%) (Auto) 0.6 % (0.3-1.4) Nucleated RBC Relative Count (auto) 0.0 /100WBC Neutrophils # (Auto) 5.9 K/uL (2.0-7.4) Lymphocytes # (Auto) 1.1 K/uL (1.3-3.6) Monocytes # (Auto) 0.8 K/uL (0.3-1.0) Eosinophils # (Auto) 0.3 K/uL (0.0-0.5) Basophils # (Auto) 0.0 K/uL (0.0-0.1) Nucleated RBC Absolute Count (auto) 0.00 K/uL D-Dimer Quantitative (PE/DVT) 0.57 ug/ml (0-0.50) Sodium Level 137 mmol/L (137-145) Potassium Level 4.6 mmol/L (3.5-5.0) Chloride Level 99 mmol/L (98-107) Carbon Dioxide Level 30 mmol/L (22-31) Blood Urea Nitrogen 12 mg/dl (7-18) Creatinine 0.80 mg/dl (0.52-1.04) Glomerular Filtration Rate Calc > 60.0 Random Glucose 126 mg/dl (75-110) Calcium Level 9.4 mg/dl (8.4-10.2) Total Bilirubin 0.4 mg/dl (0.2-1.3) Aspartate Amino Transf (AST/SGOT) 56 U/L (0-35) Alanine Aminotransferase (ALT/SGPT) 76 U/L (0-56) Alkaline Phosphatase 87 U/L (0-126) Troponin I < 0.012 ng/ml B-Type Natriuretic Peptide 7 pg/ml (0-100) Total Protein 7.2 g/dl (6.3-8.2) Albumin 4.2 g/dl (3.5-5.0) Blood Gas Puncture Site Left radial Blood Gas Patient Temperature 98.5 DEGREES Arterial Blood pH 7.39 (7.35-7.45) Arterial Blood Partial Pressure CO2 41 mmHg (32-37) Arterial Blood Partial Pressure O2 104 mmHg (60-80) Arterial Blood HCO3 25 mmol/L (20-26) Arterial Blood Oxygen Saturation 98 % (92-100) Arterial Blood Base Excess 0.0 mmol/L [place] Test Acceptable Oxygen Liters/Minute 53% Chemistry Test 11/24/18 15:31 11/24/18 16:07 White Blood Count 8.1 k/uL (4.5-11.0) Red Blood Count 4.84 M/uL (4.17-5.56) Hemoglobin 14.9 g/dL (12.0-16.0) Hematocrit 44.8 % (34.0-47.0) Mean Corpuscular Volume 92.4 fL (80.0-96.0) Mean Corpuscular Hemoglobin 30.8 pg (26.0-33.0) Mean Corpuscular Hemoglobin Concent 33.3 g/dL (32.0-36.0) Red Cell Distribution Width 13.6 % (11.5-14.5) Platelet Count 186 K/uL (150-450) Mean Platelet Volume 9.8 fL (7.2-11.1) Neutrophils (%) (Auto) 72.2 % (39.4-72.5) Lymphocytes (%) (Auto) 13.0 % (17.6-49.6) Monocytes (%) (Auto) 10.4 % (4.1-12.4) Eosinophils (%) (Auto) 3.8 % (0.4-6.7) Basophils (%) (Auto) 0.6 % (0.3-1.4) Nucleated RBC Relative Count (auto) 0.0 /100WBC Neutrophils # (Auto) 5.9 K/uL (2.0-7.4) Lymphocytes # (Auto) 1.1 K/uL (1.3-3.6) Monocytes # (Auto) 0.8 K/uL (0.3-1.0) Eosinophils # (Auto) 0.3 K/uL (0.0-0.5) Basophils # (Auto) 0.0 K/uL (0.0-0.1) Nucleated RBC Absolute Count (auto) 0.00 K/uL D-Dimer Quantitative (PE/DVT) 0.57 ug/ml (0-0.50) Glomerular Filtration Rate Calc > 60.0 Calcium Level 9.4 mg/dl (8.4-10.2) Total Bilirubin 0.4 mg/dl (0.2-1.3) Aspartate Amino Transf (AST/SGOT) 56 U/L (0-35) Alanine Aminotransferase (ALT/SGPT) 76 U/L (0-56) Alkaline Phosphatase 87 U/L (0-126) Troponin I < 0.012 ng/ml B-Type Natriuretic Peptide 7 pg/ml (0-100) Total Protein 7.2 g/dl (6.3-8.2) Albumin 4.2 g/dl (3.5-5.0) Blood Gas Puncture Site Left radial Blood Gas Patient Temperature 98.5 DEGREES Arterial Blood pH 7.39 (7.35-7.45) Arterial Blood Partial Pressure CO2 41 mmHg (32-37) Arterial Blood Partial Pressure O2 104 mmHg (60-80) Arterial Blood HCO3 25 mmol/L (20-26) Arterial Blood Oxygen Saturation 98 % (92-100) Arterial Blood Base Excess 0.0 mmol/L Romero Test Acceptable Oxygen Liters/Minute 53% Coagulation Test 11/24/18 15:31 D-Dimer Quantitative (PE/DVT) 0.57 ug/ml ED Course/Re-evaluation ED Course ED course 48-year-old female hyperreactive airway and asthma received an hour- long DuoNeb with a very low peak flow less than 140 followed by BiPAP patient's doing significantly better be admitted for asthma exacerbation patient also received Solu-Medrol and magnesium IV Decision to Disposition Date: Nov 24, 2018 Decision to Disposition Time: 17:04 Depart Departure Latest Vital Signs Vital Signs Date Time Temp Pulse Resp B/P (MAP) Pulse Ox O2 Delivery O2 Flow Rate FiO2 11/24/18 15:43 94 Nasal Cannula 3.5 11/24/18 15:43 117 24 11/24/18 15:21 98.5 117/103 Impression: Primary Impression: Asthma Condition: Improved Disposition: Admitted from ER Referrals: RAKESH GOLDEN MD (PCP) DAFNE CLARKE MD Nov 24, 2018 15:37
[2018-11-24 15:51] LABS: PLATELET COUNT, AUTOMATED 186 K/uL (150-450)
[2018-11-24] MEDS ORDERED: IOPAMIDOL 76% 75 ML INFUS BTL 75 ML ONE (16:21)
[2018-11-24] MEDS ORDERED: NS(*) 0.9% 50 ML BAG 50 ML ONE (16:21)
--- NOTE | 2018-11-24 16:23 | EKG ---
FACILITY[place] [facility] [place]IENT NAME: IGNACIO CURRAN : [id number] MR: [id number] V: [id number] EXAM DATE: ORDERING PHYSICIAN: DAFNE CLARKE TECHNOLOGIST: Test Reason : SOB Blood Pressure : / mmHG Vent. Rate : 119 BPM Atrial Rate : 119 BPM P-R Int : 140 ms QRS Dur : 070 ms QT Int : 314 ms P-R-T Axes : 056 075 042 degrees QTc Int : 441 ms Sinus tachycardia Flattened T waves inferiorly and laterally consistent with ischemia vs normal variant When compared with ECG of 23-OCT-2018 20:08, Nonspecific T wave abnormality now evident in Inferior leads Nonspecific T wave abnormality no longer evident in Lateral leads Confirmed by CLEMENCIA ELAINE ([id number]) on 11/24/2018 4:33:02 PM Referred By: Confirmed By:CLEMENCIA ELAINE
[2018-11-24] MEDS ORDERED: LORazepam 2 MG/ML VIAL IVP ONE (16:25)
--- NOTE | 2018-11-24 16:26 | RADIOLOGY IMAGING REPORT ---
FACILITY: [facility] PATIENT NAME: Erin Mckay : 1970 MR: [id number] V: [id number] EXAM DATE: ORDERING PHYSICIAN: DAFNE CLARKE TECHNOLOGIST: Location: [facility] - [place] Patient: Erin Mckay : 1970 Visit/Account:[id number] Date of Sevice: 11/24/2018 CHEST SINGLE AP Indication: Cough and shortness of breath.. Comparison: 10/23/2018. Findings: Cardiomediastinal silhouette and pulmonary vessels within normal limits. There is no focal infiltrate or lobar consolidation. No pneumothorax or pleural effusion. No nodule. Upper abdomen is unremarkable. No acute bony abnormality. IMPRESSION: 1. No acute cardiopulmonary process. Report Dictated By: Edgard Henson at 11/24/2018 4:20 PM Report E-Signed By: Edgard Henson at 11/24/2018 4:21 PM WSN:[id number]
--- NOTE | 2018-11-24 17:08 | RADIOLOGY IMAGING REPORT ---
FACILITY: [facility] PATIENT NAME: Erin Mckay : 1970 MR: [id number] V: [id number] EXAM DATE: ORDERING PHYSICIAN: DAFNE CLARKE TECHNOLOGIST: Location: [facility] Patient: Erin Mckay : 1970 Visit/Account:[id number] Date of Sevice: 11/24/2018 CT angiogram chest with contrast Indication: Shortness breath and chest pain for 3 weeks. Comparison: None available. Technique: Axial CT images are obtained through the chest after administration of 75 mL Isovue 370 IV contrast. Reformatted coronal and sagittal images were reviewed as well as coronal MIP images. One of the following dose optimization techniques was utilized in the performance of this exam: auto mated exposure control; adjustment of the mA and/or kV according to the patient's size; or use of an iterative reconstruction technique. Specific details can be referenced in the facility's radiology C T exam operational policy. FINDINGS: No evidence of filling defect within the pulmonary vasculature to suggest pulmonary embolus. The heart is normal size without pericardial effusion. The aorta shows no aneurysm or dissection. The re are several small to prominent lymph nodes seen mediastinum and hilar regions. Largest in the subc arinal region measures 1.3 x 0.7 cm, right hilar region measuring 1.6 x 1.5 cm and left hilar region measuring 1.5 x 1.3 cm. No abnormal density seen mediastinum. Lungs show no consolidation, pleural effusion, pneumothorax, discrete nodule or focal interstitial op acities. Airways are clear. Bony structures show no acute fractures or aggressive bony lesions. Chest wall shows no enlarged axil дмитрий lymph nodes or masses. Bilateral breast implants appear to be intact. Limited views of the upper abdomen are unremarkable. IMPRESSION: 1. No evidence of pulmonary embolus. 2. No acute cardiothoracic abnormality 3. Mildly prominent mediastinal hilar lymph nodes. Nonspecific at this time. Report Dictated By: Edgard Henson at 11/24/2018 4:55 PM Report E-Signed By: Edgard Henson at 11/24/2018 5:04 PM WSN:[id number]
[2018-11-24 17:55] VITALS: BP 127/83
[2018-11-24] MEDS ORDERED: OMEP-137 PO (18:13)
[2018-11-24] MEDS ORDERED: ALBU8.5H IH (18:13)
[2018-11-24] MEDS: ACETAMINOPHEN 500 MG TAB PO PRN (18:33)
[2018-11-24] MEDS: LEVALBUTEROL 1.25 MG/3 ML NEB NEB PRN (19:23)
[2018-11-24] MEDS ORDERED: CODEINE SULFATE 30 MG TAB PO ONE (20:05)
[2018-11-24 20:19] VITALS: BP 125/82
--- NOTE | 2018-11-24 20:31 | History & Physical ---
History of Present Illness History of Present Illness 48yo female with a h/o asthma and recent hospitalization for an exacerbation who came in for SOB. She was discharged about a month ago on prednisone. She was supposed to get Advair, but couldn't afford it. She never got back to her baseline respiratory status. For the last 2 days, she has had worsening SOB. She has had some chills, body aches, and nausea. She had 2 loose stools today. She doesn't report any chest pain. She doesn't smoke, but does have a cat and dog at home. In the ER, she received an hour long neb, methylprednisolone, and magnesium IV. She reports some improvement, but still working hard to breath. History Problems: (1) GERD (gastroesophageal reflux disease) Status: Chronic (2) DM w/o complication type II Status: Chronic (3) Asthma Status: Chronic (4) Dysthymic disorder Status: Acute (5) Chronic migraine without aura, with intractable migraine, so stated, with status migrainosus Status: Acute (6) Essential hypertension Status: Chronic Home Meds Active Scripts Albuterol Sulfate 0.083% (ALBUTEROL SULFATE 0.083%) 2.5 Mg/3 Ml Vial.neb, 2.5 MG NEB Q2HR PRN for SHORTNESS OF BREATH, #100 VIAL 1 Refill Prov:CHERYL IGLESIAS MD 10/25/18 Reported Medications Albuterol Sulfate 90 Mcg/Act (PROAIR HFA 90 MCG/ACT) 8.5 Gm Hfa.aer.ad, 1-2 PUFF IH Q2H PRN for SHORTNESS OF BREATH, INHALER 11/24/18 Omeprazole (OMEPRAZOLE) 20 Mg Tablet.dr, 20 MG PO BID, TAB 11/24/18 Memantine HCl 10 MG (Memantine HCl 10 MG) 10 Mg Tablet, 10 MG PO BID 10/23/18 Venlafaxine Hcl (VENLAFAXINE HCL ER) 150 Mg Tab.er.24, 450 MG PO QDAY 10/23/18 Trazodone Hcl (TRAZODONE HCL) 100 Mg Tablet, 100 MG PO QHS, TAB Take with a 300mg tablet for a total of 400mg at HS. 10/23/18 Prazosin Hcl (PRAZOSIN HCL) 2 Mg Capsule, 6 MG PO QHS, CAPSULE 10/23/18 Bupropion Hcl (BUPROPION HCL SR) 150 Mg Tablet.er, 450 MG PO DAILY 10/23/18 Furosemide (FUROSEMIDE) 20 Mg Tablet, 1 TAB PO QPM PRN for SEE COMMENT, TAB 10/23/18 Trazodone Hcl (TRAZODONE HCL) 300 Mg Tablet, 300 MG PO QHS Take with a 100mg tablet for a total of 400mg at HS. 10/23/18 Furosemide (FUROSEMIDE) 40 Mg Tablet, 1 TAB PO QDAY, TAB 04/15/18 Propranolol Hcl (PROPRANOLOL HCL) 160 Mg Cap.sa.24h, 1 CAP PO QDAY 04/15/18 [place]-3 Fatty Acids/Fish Oil (FISH OIL 1,000 MG CAPSULE) 1 Each Capsule, 1 CAP PO QDAY, CAPSULE 07/24/16 Cholecalciferol (Vitamin D3) (VITAMIN D) 1,000 Unit Tablet, 1 TAB PO QDAY 07/11/16 Discontinued Reported Medications Multivitamin (MULTI VITAMIN DAILY) 1 Each Tablet, 1 TAB PO QDAY 07/11/16 Discontinued Scripts Fluticasone/Salmeterol (ADVAIR 100-50 DISKUS) 1 Each Disk.w.dev, 1 EACH IH BIDR, #1 DISK 1 Refill Prov:CHERYL IGLESIAS MD 10/25/18 Prednisone (PREDNISONE) 20 Mg Tablet, 20 MG PO QDAY, #5 TAB 0 Refills One tab daily for three days, then one-half tab daily for four days, then off. Prov:CHERYL IGLESIAS MD 10/25/18 Omeprazole (OMEPRAZOLE) 20 Mg Capsule.dr, 1 CAP PO QDAY, #90 CAP 4 Refills Prov:RAKESH GOLDEN MD 07/24/16 Allergies: Coded Allergies: fluconazole (Verified Allergy, Intermediate, blisters, 11/24/18) latex (Verified Allergy, Intermediate, short of breath, 11/24/18) amoxicillin (Verified Allergy, Mild, RASH, 04/30/15) aspirin (Verified Allergy, Mild, BLODDY NOSE , 04/30/15) Patient History: FH: COPD (chronic obstructive pulmonary disease) FATHER, , Age:64 FH: HTN (hypertension) MOTHER, Age:70 FH: MA (myocardial infarction) FATHER, , Age:64 MATERNAL GRANDFATHER, , Age:70 PATERNAL GRANDFATHER, , Age:70 FH: breast cancer MOTHER, Age:70, Onset:69 MATERNAL GRANDMOTHER, , Age:86 FH: diabetes mellitus MATERNAL GRANDMOTHER, , Age:86 FH: lupus FATHER, , Age:64 FH: rheumatoid arthritis MOTHER, Age:70 Hx Smoking: No Smoking Status: Never Smoker Exposure to Second Hand Smoke?: No Caffeine Intake: Soda Caffeine/Cups Per Day: 3 cups a day Hx Alcohol Use: Yes Hx Substance Use Disorder: No Social Drug Use: Never Social Drugs: Marijuana, Prescription Drugs Amount Of Social Drug/s Used: 1-2 x per week for aprox 1 year Review of Systems All Systems Reviewed/Normal: Yes, Except as Noted Exam Vital Signs Vital Signs Date Time Temp Pulse Resp B/P (MAP) Pulse Ox O2 Delivery O2 Flow Rate FiO2 11/24/18 19:23 119 18 11/24/18 19:15 94 Nasal Cannula 3.5 11/24/18 17:55 100.2 127/83 (98) 11/24/18 17:24 30.0 General Appearance: Alert, Awake, Other (Mild increased wob) Neuro: No Gross deficits Eyes: PERRLA ENT: Moist Mucous Membranes Cardiovascular: Other (tachy, regular, no m/r/g) Respiratory: Clear to Auscultation (moving air to bases bilaterally) GI: Abd Soft and Non-Tender Extremities: No Edema Integumentary: No Jaundice, No Cyanosis Medical Decision Making Data Points Result Diagram: 11/24/18 1531 11/24/18 1531 Item Value Date Time Total Bilirubin 0.4 mg/dl 11/24/18 1531 Aspartate Amino Transf (AST/SGOT) 56 U/L H 11/24/18 1531 Alanine Aminotransferase (ALT/SGPT) 76 U/L H 11/24/18 1531 Alkaline Phosphatase 87 U/L 11/24/18 1531 Troponin I < 0.012 ng/ml 11/24/18 1531 B-Type Natriuretic Peptide 7 pg/ml 11/24/18 1531 Neutrophils (%) (Auto) 72.2 % 11/24/18 1531 Lymphocytes (%) (Auto) 13.0 % L 11/24/18 1531 Monocytes (%) (Auto) 10.4 % 11/24/18 1531 Eosinophils (%) (Auto) 3.8 % 11/24/18 1531 D-Dimer Quantitative (PE/DVT) 0.57 ug/ml H 11/24/18 1531 Influenza Virus Type A (PCR) Negative 11/24/18 1724 Influenza Virus Type B (PCR) Negative 11/24/18 1724 Arterial Blood pH 7.39 11/24/18 1607 Arterial Blood Partial Pressure CO2 41 mmHg H 11/24/18 1607 Arterial Blood Partial Pressure O2 104 mmHg *H 11/24/18 1607 Arterial Blood HCO3 25 mmol/L 11/24/18 1607 Arterial Blood Oxygen Saturation 98 % 11/24/18 1607 EKG / Imaging EKG Interpretation Vent. Rate : 119 BPM Atrial Rate : 119 BPM P-R Int : 140 ms QRS Dur : 070 ms QT Int : 314 ms P-R-T Axes : 056 075 042 degrees QTc Int : 441 ms Sinus tachycardia Flattened T waves inferiorly and laterally consistent with ischemia vs normal variant When compared with ECG of 23-OCT-2018 20:08, Nonspecific T wave abnormality now evident in Inferior leads Nonspecific T wave abnormality no longer evident in Lateral leads Confirmed by CLEMENCIA ELAINE ([id number]) on 11/24/2018 4:33:02 PM Imaging Chest CTA - 1. No evidence of pulmonary embolus. 2. No acute cardiothoracic abnormality 3. Mildly prominent mediastinal hilar lymph nodes. Nonspecific at this time. CXR - 1. No acute cardiopulmonary process. Assessment and Plan Problems: (1) Acute bronchitis with asthma with acute exacerbation Status: Acute Assessment & Plan: She presented with 2 days of worsening SOB. She hospitalized for an exacerbation about a month ago and never got back to baseline. She had a blood gas with a mildly elevated PCO2. No infiltrate or PE on CTA of the chest. By the time I saw her, she appeared comfortable, the lungs were clear and she was moving air to the bases well. She has been started on methylprednisolone and doxycycline. She will get prn Xopenex (secondary to tachycardia). She does have a dog and cat at home that could be exacerbating sy mptoms. (2) DM w/o complication type II Status: Chronic Assessment & Plan: She is currently diet controlled at home. Check glucose AC and HS with SSI to cover. (3) GERD (gastroesophageal reflux disease) Status: Chronic Assessment & Plan: On omeprazole at home, will use Protonix in the hospital. (4) Essential hypertension Status: Chronic Assessment & Plan: Will hold chronic propranolol because of concern of exacerbating asthma. (5) Severe recurrent major depression without psychotic features Status: Chronic Assessment & Plan: Continue prazosin 6mg at HS, trazodone 400mg at HS, Effexor XR 450mg daily, memantine 10mg bid and bupropion XL 300mg daily. (6) Edema Status: Chronic Assessment & Plan: Hold chronic Lasix for now. No edema on my exam. Venous Thromboembolism Antithrombotics Is Pt On Any Antithrombotics?: No Exam Sepsis Risk: No Definite Risk CLEMENCIA ELAINE MD Nov 24, 2018 20:31
[2018-11-24] MEDS ORDERED: BUPR300T56 PO (20:40)
[2018-11-24] MEDS ORDERED: NS(*) 0.9% 500 ML BAG 500 ML ONE (20:52)
[2018-11-24] MEDS: DOXYCYCLINE HYCL 100 MG VIAL 100 MG in NS(*) 0.9% 250 ML BAG 250 ML IV SCH (20:56)
[2018-11-24] MEDS: methylPREDNIS SUCC 125 MG/2ML IVP SCH (20:58)
[2018-11-24] MEDS: MEMANTINE HCL 5 MG TAB PO SCH (20:59)
[2018-11-24] MEDS: PANTOPRAZOLE SOD 40 MG TABEC PO SCH (20:59)
[2018-11-24] MEDS ORDERED: PRAZOSIN HCL 1 MG CAP PO SCH (21:00)
[2018-11-24] MEDS: PRAZOSIN HCL PO SCH (21:00)
[2018-11-24] MEDS: SALMETEROL/FLUTIC 500/50 1 INH INH SCH (21:00)
[2018-11-24] MEDS: traZODone HCL 50 MG TAB PO SCH (21:00)
[2018-11-24] MEDS: INSULIN HUM LISPRO 100 UN/ML 3 ML VIAL SUBQ PRN (21:10)
[2018-11-25] MEDS: SALMETEROL/FLUTIC 500/50 1 INH INH SCH ×2 (05:16→18:44)
[2018-11-25] MEDS: LEVALBUTEROL 1.25 MG/3 ML NEB NEB PRN ×3 (05:27→18:45)
[2018-11-25] MEDS: methylPREDNIS SUCC 125 MG/2ML IVP SCH (05:32)
[2018-11-25 06:22] LABS: PLATELET COUNT, AUTOMATED 183 K/uL (150-450)
[2018-11-25] MEDS: ACETAMINOPHEN 500 MG TAB PO PRN ×2 (06:47→17:18)
[2018-11-25 07:48] VITALS: BP 129/74
[2018-11-25 08:57] VITALS: BMI 36.7
[2018-11-25 09:05] VITALS: BMI 36.7
[2018-11-25] MEDS: PANTOPRAZOLE SOD 40 MG TABEC PO SCH ×2 (09:06→21:11)
[2018-11-25] MEDS: DOXYCYCLINE HYCL 100 MG VIAL 100 MG in NS(*) 0.9% 250 ML BAG 250 ML IV SCH (09:06)
[2018-11-25] MEDS: VENLAFAXINE XR 75 MG CAPCR PO SCH (09:06)
[2018-11-25] MEDS: MEMANTINE HCL 5 MG TAB PO SCH ×2 (09:06→21:11)
[2018-11-25] MEDS: buPROPion XL 150 MG TABCR PO SCH (09:06)
[2018-11-25] MEDS: ENOXAPARIN 40 MG/0.4ML SYR SC SCH (09:07)
[2018-11-25] MEDS: INSULIN HUM LISPRO 100 UN/ML 3 ML VIAL SUBQ PRN ×2 (09:07→21:12)
[2018-11-25] MEDS ORDERED: DOXYCYCLINE HYCL 100 MG TAB PO ONE (10:15)
[2018-11-25 10:56] VITALS: BP 133/72
[2018-11-25] MEDS ORDERED: DIAZEPAM 2 MG TAB PO PRN (11:20)
[2018-11-25] MEDS: traMADol 50 MG TAB PO PRN ×2 (12:29→18:26)
[2018-11-25] MEDS: predniSONE 20 MG TAB PO SCH (12:30)
--- NOTE | 2018-11-25 14:20 | Hospitalist Progress Note ---
Subjective Progress Notes Subjective 48F admitted for asthma exacerbation. Having profound tachycardia and MELENDEZ with minimal bedside activity of daily living. Patient Complains of: Gastrointestinal: No Nausea, No Vomiting Physical Exam Vital Signs Date Time Temp Pulse Resp B/P (MAP) Pulse Ox O2 Delivery O2 Flow Rate FiO2 11/25/18 11:15 120 16 11/25/18 11:10 94 Nasal Cannula 4.0 11/25/18 10:56 98.6 133/72 (92) 11/24/18 17:24 30.0 Intake and Output 11/25/18 07:00 Intake Total 650 ml Balance 650 ml Intake Oral 600 ml IV Total 50 ml # Voids 2 General Appearance: Alert, Awake, Afebrile (tremor, appears nervous) Neuro: No Gross deficits ENT: Normal Cardiovascular: Other (tachycardic, regular rhythm) Respiratory: No Respiratory Distress GI: Soft and Non-Tender Extremities: Soft and Non Tender, Warm, Pulses, Perfused Psych: Other (appears anxious) Result Diagram: 11/25/1853611/25/18536 Assessment and Plan Problems: (1) Acute bronchitis with asthma with acute exacerbation Status: Acute Assessment & Plan: She presented with 2 days of worsening SOB. She hospitalized for an exacerbation about a month ago and never got back to baseline. She had a blood gas with a mildly elevated PCO2. No infiltrate or PE on CTA of the chest. She has been started on methylprednisolone and doxycycline. She will get prn Xopenex (secondary to tachycardia). She does have a dog and cat at home that could be exacerbating symptoms. Given patient profound tachycardia and MELENDEZ will get ECHO to evaluate cardiac function. (2) DM w/o complication type II Status: Chronic Assessment & Plan: She is currently diet controlled at home. Check glucose AC and HS with SSI to cover. (3) GERD (gastroesophageal reflux disease) Status: Chronic Assessment & Plan: On omeprazole at home, will use Protonix in the hospital. (4) Essential hypertension Status: Chronic Assessment & Plan: Will hold chronic propranolol because of concern of exacerbating asthma. (5) Severe recurrent major depression without psychotic features Status: Chronic Assessment & Plan: Continue prazosin 6mg at HS, trazodone 400mg at HS, Effexor XR 450mg daily, memantine 10mg bid and bupropion XL 300mg daily. (6) Edema Status: Chronic Assessment & Plan: Hold chronic Lasix for now. Exam Sepsis Risk: No Definite Risk STEPHANIE HUTCHINSON DO Nov 25, 2018 14:20
[2018-11-25 15:20] VITALS: BP 142/74
[2018-11-25 15:23] VITALS: Ht 160 cm; Wt 94.1 kg
--- NOTE | 2018-11-25 15:31 | Medical Nutrition Therapy ---
JASMINE QUINTANA 11/25/18 1212: Nutrition Anthropometrics Height (Inches): 63.00 Height (Calculated Centimeters: [phone] Weight (Pounds): 207 Weight (Calculated Kilograms): 94.120 BMI: 36.8 Donnie Nutrition Score: Adequate Donnie Nutrition Risk Score: 20 Dietary Referral Nutrition Risk Factors: Nutrition Risk Comment: Shortness of Breath Physical Findings Physical Appearance: Obese BMI 30-39 Skin Appearance Skin Appearance: Edema Edema Location Modifier: Edema Location: Type of Edema: Degree of Edema: Gastrointestinal Symptoms GI Symtoms: Tube Present: Bowel Sounds: Recent Bowel Pattern: Stool Characteristics: Nutritional Diagnosis Nutritional Risk Acuity 2: Swallowing Problem Nutritional Risk Acuity 3: GERD Nutritional Risk Acuity 4: Good Appetite, Modified Diet Past Medical History: Asthma, GERD, essential hypertension, edema, T2DM, migraine, PCOS, depression Nutritional Acuity: 2-Moderate Nutrition Diagnosis: Inadequate Food Intake Nutrition Etiology: Inconsist. Eating Pattern Nutrition Problem/Etiology/Sym: Inadequate food intake related to inconsistent eating pattern as evidenced by acute bronchitis, NPO, and GERD. Energy Requirement: 2032 (MSJ, 1.1 TEF, 1.2 AF) Adjusted Energy Requirement Re: 1533 (-500kcal) Protein Requirement: 75 (0.8g/kg of BW) Fluid Requirement: 2032 (1mL/kcal) Diet Type: NPO (Nothing by Mouth) Nutrition Intervention: Cont diet as ordered Diet Comment To RSA: 11/24 at 15:00 hours a NPO diet was ordered then at 20:00 hours a nurse reported 100% snack (fruit intake). Nutrition Monitoring & Eval Nutrition Goals: Eat 50-100% Meal RD Patient Assessment Time: [address] Assessment Type: RD Assessment Patient Nutrition Acuity: 2-Moderate Follow Up Date: Nov 26, 2018 Nutritional Comment: Pt admitted for SOB, acute bronchitis, GERD, DMT2 w/o complications, hypertension and depression. Pt has hx of asthma, DMT2, GERD, hypertension, chronic migraine and dysthymic disorder. Pt is on anticoagulant drug enoxaparin. Pt has elevated random blood glucose ranging from 126-216. Pt is currently on an active NPO diet however consumed fruit as a snack on 11/24-JJermaine MDS Due Date: Dec 23, 2018 QUE MUNOZ 11/25/18 1531: Nutrition Monitoring & Eval Nutritional Comment: Fluid Designer note assessed and approved by RD. -JASMINE LARIOS Nov 25, 2018 12:12 QUE MUNOZ Nov 25, 2018 15:31
[2018-11-25] MEDS ORDERED: DIAZEPAM 5 MG TAB PO ONE (15:40)
[2018-11-25 19:22] VITALS: BP 143/81
[2018-11-25] MEDS: PRAZOSIN HCL PO SCH (21:10)
[2018-11-25] MEDS: traZODone HCL 50 MG TAB PO SCH (21:10)
[2018-11-25] MEDS: DIAZEPAM 5 MG TAB PO PRN (21:11)
[2018-11-25] MEDS: DOXYCYCLINE HYCL 100 MG TAB PO SCH (21:11)
[2018-11-26] MEDS: traMADol 50 MG TAB PO PRN (03:26)
[2018-11-26] MEDS: ACETAMINOPHEN 500 MG TAB PO PRN ×2 (03:26→18:30)
[2018-11-26 03:27] VITALS: BP 133/77
[2018-11-26] MEDS: SALMETEROL/FLUTIC 500/50 1 INH INH SCH ×2 (05:12→17:06)
[2018-11-26 08:20] VITALS: BP 130/83
[2018-11-26] MEDS ORDERED: INFLUENZA VIRUS VAC 0.5ML SYR IM ONLY ONE (09:00)
[2018-11-26] MEDS: ENOXAPARIN 40 MG/0.4ML SYR SC SCH (09:23)
[2018-11-26] MEDS: DOXYCYCLINE HYCL 100 MG TAB PO SCH ×2 (09:24→20:36)
[2018-11-26] MEDS: MEMANTINE HCL 5 MG TAB PO SCH ×2 (09:24→20:36)
[2018-11-26] MEDS: MONTELUKAST SODIUM 10 MG TAB PO SCH (09:24)
[2018-11-26] MEDS: PANTOPRAZOLE SOD 40 MG TABEC PO SCH ×2 (09:24→20:36)
[2018-11-26] MEDS: predniSONE 20 MG TAB PO SCH (09:25)
[2018-11-26] MEDS: PROPRANOLOL HCL LA 80 MG CAPCR PO SCH (09:25)
[2018-11-26] MEDS: buPROPion XL 150 MG TABCR PO SCH (09:26)
[2018-11-26] MEDS: VENLAFAXINE XR 75 MG CAPCR PO SCH (09:27)
--- NOTE | 2018-11-26 09:46 | Medical Nutrition Therapy ---
Nutrition Anthropometrics Height (Inches): 63.00 Height (Calculated Centimeters: [phone] Weight (Pounds): 207 Weight (Calculated Kilograms): 94.120 Donnie Nutrition Score: Adequate Donnie Nutrition Risk Score: 21 Dietary Referral Nutrition Risk Factors: Nutrition Risk Comment: Shortness of Breath Physical Findings Physical Appearance: Obese BMI 30-39 Skin Appearance Skin Appearance: Edema Edema Location Modifier: Edema Location: Type of Edema: Degree of Edema: Gastrointestinal Symptoms GI Symtoms: Tube Present: Bowel Sounds: Recent Bowel Pattern: Stool Characteristics: Nutritional Diagnosis Nutritional Risk Acuity 2: Diet < 1000 Kcal Nutritional Risk Acuity 3: GERD Nutritional Risk Acuity 4: Good Appetite Past Medical History: Asthma, GERD, essential hypertension, edema, T2DM, migraine, PCOS, depression Nutritional Acuity: 2-Moderate Nutrition Diagnosis: Increased Nutrient Needs Nutrition Etiology: Physiological Causes Nutrition Problem/Etiology/Sym: Increased nutrient needs as related to physiological causes as evidenced by difficulty breathing. Energy Requirement: 2203 (m st jeor X 1.1X1.3) Adjusted Energy Requirement Re: 1703 (-500 for wt loss) Protein Requirement: 94 (1 g protein/kg) Fluid Requirement: 2203 (1mL/1 kcal) Nutrition Intervention: Cont diet as ordered, Incr diet as tolerated Diet Comment To RSA: 11/24 at 15:00 hours a NPO diet was ordered then at 20:00 hours a nurse reported 100% snack (fruit intake). Nutrition Monitoring & Eval Nutrition Goals: Eat 50-100% Meal, Drink > 2 liters/day RD Patient Assessment Time: [address] Assessment Type: RD Assessment Patient Nutrition Acuity: 3-Mild Follow Up Date: Dec 01, 2018 Nutritional Comment: 11/26 Pt has progressed to SHERRY with 100% intakes. Pt taking enoxaparin and insulin. Pt on prednisone with whole blood glucose ranging from 101-287. AST of 37 and ALT of 71 are elevated. Pt acuity improved from 2 to 3 due to increase of diet and good intake. -QUE RUFF Nov 26, 2018 09:46
[2018-11-26] MEDS ORDERED: VENLAFAXINE XR 75 MG CAPCR PO ONE (11:25)
[2018-11-26] MEDS: LEVALBUTEROL 1.25 MG/3 ML NEB NEB PRN ×2 (11:36→18:37)
[2018-11-26 11:48] VITALS: BP 132/86
--- NOTE | 2018-11-26 14:14 | Hospitalist Progress Note ---
Subjective Progress Notes Subjective She reports episodic wheezing/dyspnea with even low levels of activity. Physical Exam Vital Signs Date Time Temp Pulse Resp B/P (MAP) Pulse Ox O2 Delivery O2 Flow Rate FiO2 11/26/18 11:48 98.0 84 22 132/86 (101) 95 Nasal Cannula 3.0 11/24/18 17:24 30.0 Intake and Output 11/26/18 07:00 Intake Total 2510 ml Balance 2510 ml Intake Oral 2510 ml # Voids 2 General Appearance: Alert, Awake Cardiovascular: Other (Regular slightly tachycardic) Respiratory: Other (diminished breath sounds bilaterally, but no current wheezing (recent breathing treatment)) Extremities: Warm, Perfused Result Diagram: 11/25/1853611/25/18536 Assessment and Plan Problems: (1) Acute bronchitis with asthma with acute exacerbation Status: Acute Assessment & Plan: She presented with 2 days of worsening SOB. She hospitalized for an exacerbation about a month ago and never got back to baseline. She had a blood gas with a mildly elevated PCO2. No infiltrate or PE on CT angiogram of the chest. She has been started on methylprednisolone and doxycycline. She will get PRN Xopenex (secondary to tachycardia). She does have a dog and cat at home that could be exacerbating symptoms. Her ECHOcardiogram is essentially normal. Will continue with same and add Singulair. Start to mobilize. (2) DM w/o complication type II Status: Chronic Assessment & Plan: She is currently diet controlled at home. Monitor glucose at AC and HS with SSI to cover. (3) GERD (gastroesophageal reflux disease) Status: Chronic Assessment & Plan: On omeprazole at home, will use Protonix in the hospital. (4) Essential hypertension Status: Chronic Assessment & Plan: Will now resume her usual propranolol and see if any relationship to her symptoms. She has been tachycardic since holding it. (5) Severe recurrent major depression without psychotic features Status: Chronic Assessment & Plan: Continue prazosin 6mg at HS, trazodone 400mg at HS, Effexor XR 450mg daily, memantine 10mg bid and bupropion XL 300mg daily. (6) Edema Status: Chronic Assessment & Plan: Hold chronic Lasix for now. Exam Sepsis Risk: No Definite Risk CHERYL IGLESIAS MD Nov 26, 2018 14:14
[2018-11-26] MEDS: DIAZEPAM 5 MG TAB PO PRN (15:08)
[2018-11-26 15:43] VITALS: BP 140/93
[2018-11-26] MEDS: INSULIN HUM LISPRO 100 UN/ML 3 ML VIAL SUBQ PRN ×2 (17:30→22:04)
[2018-11-26 19:22] VITALS: BP 126/85
[2018-11-26 20:34] VITALS: BP 129/89
[2018-11-26] MEDS: PRAZOSIN HCL PO SCH (20:36)
[2018-11-26] MEDS: DOCUSATE SODIUM 100 MG CAP PO SCH (20:36)
[2018-11-26] MEDS: traZODone HCL 50 MG TAB PO SCH (20:37)
[2018-11-27 02:51] VITALS: BP 121/74
[2018-11-27] MEDS: ACETAMINOPHEN 500 MG TAB PO PRN ×2 (04:07→21:01)
[2018-11-27] MEDS: SALMETEROL/FLUTIC 500/50 1 INH INH SCH ×2 (06:05→18:03)
[2018-11-27 06:22] LABS: PLATELET COUNT, AUTOMATED 195 K/uL (150-450)
[2018-11-27 07:12] VITALS: BP 140/97
--- NOTE | 2018-11-27 08:08 | Hospitalist Progress Note ---
Subjective Progress Notes Subjective She continues to have significant dyspnea with activities. Still requiring 1-2L oxygen. Physical Exam Vital Signs Date Time Temp Pulse Resp B/P (MAP) Pulse Ox O2 Delivery O2 Flow Rate FiO2 11/27/18 07:12 97.8 62 16 140/97 (111) 95 Nasal Cannula 1.5 11/24/18 17:24 30.0 Intake and Output 11/27/18 07:00 Intake Total 2220 ml Balance 2220 ml Intake Oral 2220 ml # Voids 4 General Appearance: Alert, Awake Cardiovascular: Regular Rate and Rhythm Respiratory: Other (Essentially clear - no rales or wheezes noted at this time) Result Diagram: 11/27/18 0550 11/27/18 0550 Assessment and Plan Problems: (1) Acute bronchitis with asthma with acute exacerbation Status: Acute Assessment & Plan: She presented with 2 days of worsening SOB. She was hospitalized for an exacerbation about a month ago and felt she never got back to baseline. She had a blood gas with a mildly elevated PCO2. No infiltrate or PE on CT angiogram of the chest. She has been started on methylprednisolone and doxycycline. She is getting PRN Xopenex (secondary to tachycardia). She does have a dog and cat at home that could be exacerbating symptoms. Her ECHOcardiogram is essentially normal. We have also added Singulair. Start to mobilize and see what her oxygen saturations do and what level of activity she can tolerate. (2) DM w/o complication type II Status: Chronic Assessment & Plan: She is currently diet controlled at home. Monitor glucose at AC and HS with SSI to cover. (3) GERD (gastroesophageal reflux disease) Status: Chronic Assessment & Plan: On omeprazole at home, will use Protonix in the hospital. (4) Essential hypertension Status: Chronic Assessment & Plan: We have now resumed her usual propranolol. It does not appear to have any relationship to her symptoms. She has been on it for many years. She did have significant tachycardia while off it. (5) Severe recurrent major depression without psychotic features Status: Chronic Assessment & Plan: Continue prazosin 6mg at HS, trazodone 400mg at HS, Effexor XR 450mg daily, memantine 10mg bid and bupropion XL 300mg daily. (6) Edema Status: Chronic Assessment & Plan: Will resume her usual Lasix 40mg PO qAM. Exam Sepsis Risk: No Definite Risk CHERYL IGLESIAS MD Nov 27, 2018 08:08
[2018-11-27] MEDS: PANTOPRAZOLE SOD 40 MG TABEC PO SCH ×2 (09:03→21:02)
[2018-11-27] MEDS: buPROPion XL 150 MG TABCR PO SCH (09:03)
[2018-11-27] MEDS: PROPRANOLOL HCL LA 80 MG CAPCR PO SCH (09:04)
[2018-11-27] MEDS: MONTELUKAST SODIUM 10 MG TAB PO SCH (09:04)
[2018-11-27] MEDS: FUROSEMIDE 40 MG TAB PO SCH (09:04)
[2018-11-27] MEDS: predniSONE 20 MG TAB PO SCH (09:04)
[2018-11-27] MEDS: DOXYCYCLINE HYCL 100 MG TAB PO SCH ×2 (09:04→21:01)
[2018-11-27] MEDS: DOCUSATE SODIUM 100 MG CAP PO SCH ×2 (09:04→21:01)
[2018-11-27] MEDS: VENLAFAXINE XR 75 MG CAPCR PO SCH (09:05)
[2018-11-27] MEDS: MEMANTINE HCL 10 MG TABLET PO SCH ×2 (09:06→21:01)
[2018-11-27] MEDS: ENOXAPARIN 40 MG/0.4ML SYR SC SCH (09:06)
[2018-11-27] MEDS: LEVALBUTEROL 1.25 MG/3 ML NEB NEB PRN (10:20)
--- NOTE | 2018-11-27 12:08 | Antimicrobial Stewardship ---
Antimicrobial Time Out Antimicrobial Stewardship MD Service: Hospitalist Indications: CAP Antimicrobial Used DOXYCYCLINE Start Date: Nov 24, 2018 Culture Results: N/A Eligible for PO Conversion Eligable for PO Conversion: Yes (ON PO) Reviewed with Provider Reviewed w/ Provider on Rounds: No Comments Comments Patient with hx of asthma having bronchitis/asthma exacerbation. Coverage with doxycycline RENATE MARLEY Nov 27, 2018 12:08
[2018-11-27 14:57] VITALS: BP 164/100
[2018-11-27 19:14] VITALS: BP 134/95
[2018-11-27] MEDS: PRAZOSIN HCL PO SCH (21:01)
[2018-11-27] MEDS: traZODone HCL 50 MG TAB PO SCH (21:01)
[2018-11-28 02:39] VITALS: BP 116/73
[2018-11-28] MEDS: SALMETEROL/FLUTIC 500/50 1 INH INH SCH ×2 (06:14→17:35)
[2018-11-28 07:27] VITALS: BP 117/84
[2018-11-28] MEDS: PROPRANOLOL HCL LA 80 MG CAPCR PO SCH (08:42)
[2018-11-28] MEDS: DOCUSATE SODIUM 100 MG CAP PO SCH (08:43)
[2018-11-28] MEDS: PANTOPRAZOLE SOD 40 MG TABEC PO SCH (08:43)
[2018-11-28] MEDS: DOXYCYCLINE HYCL 100 MG TAB PO SCH (08:43)
[2018-11-28] MEDS: traMADol 50 MG TAB PO PRN (08:43)
[2018-11-28] MEDS: predniSONE 20 MG TAB PO SCH (08:43)
[2018-11-28] MEDS: FUROSEMIDE 40 MG TAB PO SCH (08:43)
[2018-11-28] MEDS: buPROPion XL 150 MG TABCR PO SCH (08:43)
[2018-11-28] MEDS: ENOXAPARIN 40 MG/0.4ML SYR SC SCH (08:44)
[2018-11-28] MEDS: MONTELUKAST SODIUM 10 MG TAB PO SCH (08:44)
[2018-11-28] MEDS: VENLAFAXINE XR 75 MG CAPCR PO SCH (08:44)
[2018-11-28] MEDS: MEMANTINE HCL 10 MG TABLET PO SCH (08:44)
--- NOTE | 2018-11-28 11:27 | Hospitalist Progress Note ---
Subjective Progress Notes Subjective Overall, feeling less SOB, but still dependant on O2 and gets dyspneic with exertion. Also, continued hoarseness Physical Exam Vital Signs Date Time Temp Pulse Resp B/P (MAP) Pulse Ox O2 Delivery O2 Flow Rate FiO2 11/28/18 07:27 97.7 71 20 117/84 (95) 93 Nasal Cannula 2.0 11/24/18 17:24 30.0 Intake and Output 11/28/18 06:59 Intake Total 1920 ml Balance 1920 ml Intake Oral 1920 ml # Voids 2 General Appearance: Alert, Awake, No Acute Distress Respiratory: Clear to Auscultation (Moving air well to the bases) Extremities: No Edema Result Diagram: 11/27/18 0550 11/27/18 0550 Assessment and Plan Problems: (1) Acute bronchitis with asthma with acute exacerbation Status: Acute Assessment & Plan: She presented with 2 days of worsening SOB. She was hospitalized for an exacerbation about a month ago and felt she never got back to baseline. She had a blood gas with a mildly elevated PCO2. No infiltrate or PE on CT angiogram of the chest. She has been started on methylprednisolone and doxycycline. She is getting PRN Xopenex (secondary to tachycardia). She does have a dog and cat at home that could be exacerbating symptoms. Her ECHO is essentially normal and BNP was normal. We have also added Singulair. It is unclear why she is still O2 dependant with a normal CTA of the chest and no h/o smoking. She has f/u with a Accounts Payable Coordinator in 3 weeks. She should get a PFT with lung volumes before the visit. She also may benefit from an ENT evaluation because of the persistent hoarseness for the last month. (2) DM w/o complication type II Status: Chronic Assessment & Plan: She is currently diet controlled at home. Monitor glucose at AC and HS with SSI to cover. (3) GERD (gastroesophageal reflux disease) Status: Chronic Assessment & Plan: On omeprazole at home, will use Protonix in the hospital. (4) Essential hypertension Status: Chronic Assessment & Plan: We have now resumed her usual propranolol. It does not appear to have any relationship to her symptoms. She has been on it for many years. She did have significant tachycardia while off it. (5) Severe recurrent major depression without psychotic features Status: Chronic Assessment & Plan: Continue prazosin 6mg at HS, trazodone 400mg at HS, Effexor XR 450mg daily, memantine 10mg bid and bupropion XL 300mg daily. (6) Edema Status: Chronic Assessment & Plan: Will resume her usual Lasix 40mg PO qAM. Exam Sepsis Risk: No Definite Risk CLEMENCIA ELAINE MD Nov 28, 2018 11:27
[2018-11-28] MEDS: LEVALBUTEROL 1.25 MG/3 ML NEB NEB PRN (14:01)
[2018-11-28 15:35] VITALS: BP 112/85
[2018-11-28] MEDS ORDERED: DOXY-179 PO (17:02)
[2018-11-28] MEDS: INSULIN HUM LISPRO 100 UN/ML 3 ML VIAL SUBQ PRN (17:13)
[2018-11-28] MEDS ORDERED: PRED-1 PO (17:27)
[2018-11-28] MEDS ORDERED: FLUT1DIS29 INH (17:27)
[2018-11-28] MEDS ORDERED: MONT10TA PO (17:27)
[2018-11-28] MEDS ORDERED: DOXYCYCLINE HYCL 100 MG TAB PO ONE (17:30)
--- NOTE | 2018-11-28 17:42 | Hospitalist Depart ---
Discharge Summary Reason for Hosp/Final Diag: (1) Acute bronchitis with asthma with acute exacerbation Status: Acute Hospital Course & Plan: She presented with 2 days of worsening SOB. She was hospitalized for an exacerbation about a month ago and felt she never got back to baseline. She had a blood gas with a mildly elevated PCO2. No infiltrate or PE on CT angiogram of the chest. She was started on methylprednisolone and doxycycline. She was getting PRN Xopenex (secondary to tachycardia). She does have a dog and cat at home that could be exacerbating symptoms. Her ECHO is essentially normal and BNP was normal. We have added Advair and Singulair. It is unclear why she is still O2 dependant (although now down to 1 liter) with a normal CTA of the chest and no h/o smoking. She has f/u with a Director Patient in 3 weeks. She should get a PFT with lung volumes before the visit. She also may benefit from an ENT evaluation because of the persistent hoarseness for the last month. (2) DM w/o complication type II Status: Chronic Hospital Course & Plan: She is currently diet controlled at home. Glucose 75- 148 in the last 24 hours on prednisone. (3) GERD (gastroesophageal reflux disease) Status: Chronic Hospital Course & Plan: On omeprazole at home. (4) Essential hypertension Status: Chronic Hospital Course & Plan: Initially held, but now resumed her usual propranolol. It does not appear to have any relationship to her symptoms. She has been on it for many years. She did have significant tachycardia while off it. (5) Severe recurrent major depression without psychotic features Status: Chronic Hospital Course & Plan: Continue prazosin 6mg at HS, trazodone 400mg at HS, Effexor XR 450mg daily, memantine 10mg bid and bupropion XL 300mg daily. (6) Edema Status: Chronic Hospital Course & Plan: Chronically on Lasix 40mg PO qAM. Departure Weight (Pounds): 207 Weight (Ounces): 8.0 Result Diagram: 11/27/1850 11/27/18 0550 Item Value Date Time Neutrophils (%) (Auto) 72.2 % 11/24/18 1531 Neutrophils (%) (Auto) 86.3 % H 11/25/18 0537 Neutrophils (%) (Auto) 72.5 % 11/27/18 0550 White Blood Count 8.1 k/uL 11/24/18 1531 White Blood Count 8.6 k/uL 11/25/18 0537 White Blood Count 14.4 k/uL H 11/27/18 0550 Arterial Blood pH 7.39 11/24/18 1607 Arterial Blood Partial Pressure CO2 41 mmHg H 11/24/18 1607 Arterial Blood Partial Pressure O2 104 mmHg *H 11/24/18 1607 Arterial Blood pH 7.42 11/27/18 1055 Arterial Blood Partial Pressure CO2 38 mmHg H 11/27/18 1055 Arterial Blood Partial Pressure O2 62 mmHg 11/27/18 1055 D-Dimer Quantitative (PE/DVT) 0.57 ug/ml H 11/24/18 1531 Total Bilirubin 0.2 mg/dl 11/27/18 0550 Aspartate Amino Transf (AST/SGOT) 29 U/L 11/27/18 0550 Alanine Aminotransferase (ALT/SGPT) 59 U/L H 11/27/18 0550 Alkaline Phosphatase 72 U/L 11/27/18 0550 Influenza Virus Type A (PCR) Negative 11/24/18 1724 Influenza Virus Type B (PCR) Negative 11/24/18 1724 Whole Blood Glucose 128 mg/DL H 11/27/18 1222 Whole Blood Glucose 98 mg/DL 11/27/18 2100 Whole Blood Glucose 75 mg/DL 11/28/18 0808 Whole Blood Glucose 148 mg/DL H 11/28/18 1209 Imaging 11/25/18 Echo - EF>70%, no regional wall motion abnormalities, see official report for details. 11/24/18 Chest CTA - 1. No evidence of pulmonary embolus. 2. No acute cardiothoracic abnormality 3. Mildly prominent mediastinal hilar lymph nodes. Nonspecific at this time. 11/24/18 CXR - 1. No acute cardiopulmonary process. EKG Vent. Rate : 119 BPM Atrial Rate : 119 BPM P-R Int : 140 ms QRS Dur : 070 ms QT Int : 314 ms P-R-T Axes : 056 075 042 degrees QTc Int : 441 ms Sinus tachycardia Flattened T waves inferiorly and laterally consistent with ischemia vs normal variant When compared with ECG of 23-OCT-2018 20:08, Nonspecific T wave abnormality now evident in Inferior leads Nonspecific T wave abnormality no longer evident in Lateral leads Confirmed by CLEMENCIA ELAINE ([id number]) on 11/24/2018 4:33:02 PM Condition: Improved Discharge: Home Discharge Instructions Home Meds Active Scripts Prednisone 10 Mg Tab (PREDNISONE 10 MG TAB) 10 Mg Tablet, 5-50 MG PO QDAY, #31 TAB 5 pills a day for 2 days, then 4 a day for 2 days, 3 for 2 days, 2 for 2 days, 1 for 2 days, .5 for 2 days. Prov:CLEMENCIA ELAINE MD 11/28/18 Montelukast Sodium (SINGULAIR) 10 Mg Tablet, 10 MG PO QDAY, #30 Prov:CLEMENCIA ELAINE MD 11/28/18 Fluticasone/Salmeterol (ADVAIR 500-50 DISKUS) 1 Each Disk.w.dev, 0 EACH INH BIDR for 10 Days, #10 Prov:CLEMENCIA ELAINE MD 11/28/18 Doxycycline Hyclate (DOXYCYCLINE HYCLATE) 100 Mg Tablet, 100 MG PO BID, #6 Prov:CLEMENCIA ELAINE MD 11/28/18 Albuterol Sulfate 0.083% (ALBUTEROL SULFATE 0.083%) 2.5 Mg/3 Ml Vial.neb, 2.5 MG NEB Q2HR PRN for SHORTNESS OF BREATH, #100 VIAL 1 Refill Prov:CHERYL IGLESIAS MD 10/25/18 Reported Medications Bupropion Hcl (BUPROPION XL) 300 Mg Tab.er.24h, 300 MG PO QDAY, #10 TAB 11/24/18 Albuterol Sulfate 90 Mcg/Act (PROAIR HFA 90 MCG/ACT) 8.5 Gm Hfa.aer.ad, 1-2 PUFF IH Q2H PRN for SHORTNESS OF BREATH, INHALER 11/24/18 Omeprazole (OMEPRAZOLE) 20 Mg Tablet.dr, 20 MG PO BID, TAB 11/24/18 Memantine HCl 10 MG (Memantine HCl 10 MG) 10 Mg Tablet, 10 MG PO BID 10/23/18 Venlafaxine Hcl (VENLAFAXINE HCL ER) 150 Mg Tab.er.24, 450 MG PO QDAY 10/23/18 Trazodone Hcl (TRAZODONE HCL) 100 Mg Tablet, 100 MG PO QHS, TAB Take with a 300mg tablet for a total of 400mg at HS. 10/23/18 Prazosin Hcl (PRAZOSIN HCL) 2 Mg Capsule, 6 MG PO QHS, CAPSULE 10/23/18 Furosemide (FUROSEMIDE) 20 Mg Tablet, 1 TAB PO QPM PRN for SEE COMMENT, TAB 10/23/18 Trazodone Hcl (TRAZODONE HCL) 300 Mg Tablet, 300 MG PO QHS Take with a 100mg tablet for a total of 400mg at HS. 10/23/18 Furosemide (FUROSEMIDE) 40 Mg Tablet, 1 TAB PO QDAY, TAB 04/15/18 Propranolol Hcl (PROPRANOLOL HCL) 160 Mg Cap.sa.24h, 1 CAP PO QDAY 04/15/18 Barnard-3 Fatty Acids/Fish Oil (FISH OIL 1,000 MG CAPSULE) 1 Each Capsule, 1 CAP PO QDAY, CAPSULE 07/24/16 Cholecalciferol (Vitamin D3) (VITAMIN D) 1,000 Unit Tablet, 1 TAB PO QDAY 07/11/16 Discontinued Reported Medications Bupropion Hcl (BUPROPION HCL SR) 150 Mg Tablet.er, 450 MG PO DAILY 10/23/18 Multivitamin (MULTI VITAMIN DAILY) 1 Each Tablet, 1 TAB PO QDAY 07/11/16 Discontinued Scripts Fluticasone/Salmeterol (ADVAIR 100-50 DISKUS) 1 Each Disk.w.dev, 1 EACH IH BIDR, #1 DISK 1 Refill Prov:CHERYL IGLESIAS MD 10/25/18 Prednisone (PREDNISONE) 20 Mg Tablet, 20 MG PO QDAY, #5 TAB 0 Refills One tab daily for three days, then one-half tab daily for four days, then off. Prov:CHERYL IGLESIAS MD 10/25/18 Omeprazole (OMEPRAZOLE) 20 Mg Capsule.dr, 1 CAP PO QDAY, #90 CAP 4 Refills Prov:RAKESH GOLDEN MD 07/24/16 Diet: Regular Activity: As Tolerated Special Instructions: Schedule PFT in the next 7-10 days. Go to the ER for worsening SOB/fevers. Follow up with your PCP in 1-2 weeks Schedule follow up with an ENT to evaluate the persistent hoarseness Follow up with Dr. Agarwal as scheduled in 3 weeks Copies to: CHERIE SEVILLA MD; LAURA AGARWAL MD ; Venous Thromboembolism Antithrombotics Is Pt On Any Antithrombotics?: No CLEMENCIA ELAINE MD Nov 28, 2018 17:42
[2018-11-28 17:48] VITALS: BP 143/80
== END 2018-11-28 18:27 | disposition home or self-care (01) | DRG 203 ==
LOC: ER 15:35 → MED 17:11 → EDBEDREQ 17:40
PROVIDERS: ADMIT Internal Medicine; ATTEND Internal Medicine
DX: J45.901 Unspecified asthma with (acute) exacerbation (principal); J20.9 Acute bronchitis, unspecified; E11.9 Type 2 diabetes mellitus without complications; F34.1 Dysthymic disorder; G43.711 Chronic migraine without aura, intractable, with status migrainosus; K21.9 Gastro-esophageal reflux disease without esophagitis; I10 Essential (primary) hypertension; R00.0 Tachycardia, unspecified; R60.9 Edema, unspecified; Z88.0 Allergy status to penicillin; Z91.040 Latex allergy status; Z88.8 Allergy status to other drugs, medicaments and biological substances
CPT/HCPCS: 36415; 36416; 36600; 71045; 71275; 82040; 82247; 82310; 82374; 82435; 82565; 82803; 82947; 82948; 83880; 84075; 84132; 84155; 84295; 84450; 84460; 84484; 84520; 85025; 85379; 87502; 93005; 93306; 94640; 94660; 96365; 96375; 99285; J1650; J2060; J2930; J3475; J3490; J7040; J7050; J7512; J7613; Q9967

== ENCOUNTER → 2018-12-08 | Outpatient (CLI) | payer OTHER ==
[2018-11-25 15:23] VITALS: BMI 36.7
[~2018-12-08] MED LIST changes: +ALBU8.5H IH; +BUPR300T56 PO; +DOXY-179 PO; +FLUT1AER INH; +FLUT1DIS29 INH; +MONT10TA PO; +OMEP-137 PO; +PANT40TA65 PO; +PRED-1 PO
== END ==
LOC: RESP 09:59
PROVIDERS: ATTEND Internal Medicine
DX: J98.4 Other disorders of lung (principal)
CPT/HCPCS: 94060; 94726; 94729

== ENCOUNTER → 2018-12-08 | Outpatient (CLI) | payer OTHER ==
[2018-11-25 15:23] VITALS: BMI 36.7
--- NOTE | 2018-12-08 16:27 | EKG ---
FACILITY: [facility] [place] PATIENT NAME: IGNACIO CURRAN : [id number] MR: [id number] V: [id number] EXAM DATE: ORDERING PHYSICIAN: CHAO PATEL TECHNOLOGIST: HYACINTH Test Reason : SOB Blood Pressure : / mmHG Vent. Rate : 110 BPM Atrial Rate : 110 BPM P-R Int : 136 ms QRS Dur : 070 ms QT Int : 320 ms P-R-T Axes : 059 068 054 degrees QTc Int : 433 ms Sinus tachycardia Nonspecific T wave flattening When compared with ECG of 24-NOV-2018 15:36, No significant change was found Confirmed by CHERYL IGLESIAS ([id number]) on 12/08/2018 5:21:00 PM Referred By: Confirmed By:CHERYL IGLESIAS
== END ==
LOC: RESP 15:28
PROVIDERS: ATTEND Internal Medicine
DX: Z02.9 Encounter for administrative examinations, unspecified (principal)

== ENCOUNTER 2019-01-05 08:30 | Outpatient (RCR) | payer OTHER ==
[2018-11-25 15:23] VITALS: BMI 36.7
--- NOTE | 2018-12-31 12:29 | SPEECH INITIAL EVALUATION ---
VOCAL PRODUCTION EVALUATION REPORT NAME: Erin Mckay EVALUATION DATE: 12/31/2018 DATE OF : 70 DIAGNOSIS: paradoxical vocal fold motion EXAMINER: Marcie Galdamez MS, [facility] PHYSICIAN: Barrera Cardenas MD BACKGROUND The patient is a 48-year-old female seen by speech language pathology services at [facility] for a voice evaluation. The patient has been hospitalized twice in the last 1-2 months with diagnosis of bronchitis and asthma exacerbation. Her chest x-rays did not illustrate any evidence of pneumonia, and CT angiogram of the chest did not illustrate any PE. PCP reports that hypoxia and symptoms appear to be out of proportion. However, PCP also reports that the patient appears to have intermittent vocal hoarseness. She was consulted by ENT and subsequently referred to speech language pathology interventions with diagnosis of paradoxical vocal cord motion. The patient was also diagnosed with GERD, reflux medications initiated. 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 The patient is following up with a psychiatrist and is on high-dose of trazodone. The patient is employed as an RN at [employer]. She has taken 1-2 months off of work due to repeated hospitalizations. She reports experiencing wheezing in her throat, increased difficulty initiating voice when she is short of breath, and difficulty breathing throughout the day. ASSESSMENT Daily water intake: 4-5x.day Throat clearing/Coughing: pt reports frequent throat clearing in response to vocal tension Caffeine: 2x/day Smoking hx: no Reflux hx: GERD COPD hx: no, dx of asthma Breath Support: shallow, clavicular Maximum Phonation Time: 4 seconds (~20seconds considered WFL) s/z Ratio: 1.34. longest sustained /s/ = 8sec, longest sustained /z/ = 6sec. (1.4 is normal, >1.4 may be indicative of laryngeal insufficiency) CAPE-V Pitch: mild deviation with inconsistent pitch breaks Breathiness: mild to moderate deviation, inconsistent Roughness: normal Intensity: mild deviation with inconsistent reduction in loudness Strain: mild to moderate deviation with strain to produce voice associated with blocks in airflow Overall Severity: mildly to moderately deviant vocal quality characterized by intermittent breathiness, pitch breaks, shakiness, blocks in airflow with strain to produce voice, and further reduction in breath support for lengthy verbal output. Voice Handicap Index (VHI) Perceptual Measurement: During the evaluation, the pt completed a Vocal Handicap Index (VHI) to analyze perceived vocal changes and the functional impact of these changes on the pts life. The VHI is composed of three categories; physical, functional, and emotional subtests. An overall score of 0-30 reflects a minimal handicap, 31-60 reflects moderate handicap, and 60-120 is indicative of severe impairment. Total score= 64; severe perception of handicap. Physical deviation: 28 Functional deviation: 21 Emotional deviation: 15 Based on the VHI, pt perceives a severe handicap associated with vocal impairments. Impact is widespread, and observed across physical, functional, and emotional subcategories. The pt reports a loss of income associated with diagnosis, and has taken off 1-2 months of work due to repeated hospitalizations. She also reports always experiencing variation in her voice throughout the day, running out of air when she speaks, straining to produce voice, and being asked to repeat herself when speaking to others. She reports almost always using the phone less often than she would like to, experiencing unpredictability in the clarity of her voice, using a great deal of effort to speak, feeling tense because of her voice, being upset as a result of vocal deficits, and finding that others do not understand her voice problem. [place] Laryngeal Hypersensitivity Questionnaire: The NLHQ was also administered to analyze potential laryngeal sensory disturbances associated with diagnosis paradoxical vocal fold motion. The questionnaire includes 14 items across three domains: obstruction, pain/thermal, and irritation. A lower score is indicative of greater deviation. In a validation study of the NLHQ, normal adults reported an average score of 7.0 for pain/thermal factors, a score of 6.3 for irritation, and a score of 6.0 for obstruction. Patients with PVFM reported an average score of 5.5 for pain/thermal factors, a score of 4.1 for irritation, and a score of 3.6 for obstruction The following results were obtained, with results more closely resembling the profile of a patient with PVFM.: Pain/thermal factors: 5 Irritation: 1.33 Obstruction: 3.125 The patient perceives an abnormal sensation in her throat, phlegm and mucous in her throat, throat tension, pushing in her chest, constriction in her throat most of the time. She perceives something pressing on top of her throat, a tickle in her throat, an itch in her throat, and an irritation in her throat all of the time. SUMMARY The patient presents with mild to moderate vocal deviation related to diagnosis of PVFM. Vocal deficits characterized by intermittent breathiness and pitch breaks, shaky vocal quality, blocks in airflow with strain to produce voice, and further reduction in breath support for lengthy verbal output. The patient experiences frequent blocks in airflow, particularly with increased shortness of breath and difficulty with respiration. Contributing factors appear to be multifactorial, including asthma, psychological issues, and acid reflux. Voice therapy is medically necessary to provide patient instruction in behavioral compensations and exercises to minimize functional impact of PVFM for reduction in physical, emotional, and functional impact on the patients quality of life. An individualized program and home program will be established and trained. Pt was provided with education re: vocal hygiene, vocal relaxation exercises, diaphragmatic breathing techniques, and goals for interventions. Prognosis: Good. Strong motivation to participate. Recommendations ST 2x/wk, 2 wks, then reduced to 1x/wk, 3 wks POC Short Term Goals 1. Pt will independently utilize vocal tract relaxation techniques to minimize maladaptive vocal fold adduction for improved overall vocal quality / functional communication. 2. Pt will independently demonstrate diaphragmatic breathing exercises / techniques to improve respiratory support for vocal production. 3. Pt will report a mean reduction of 2.0 points on the NLHQ, reflecting decreased sensation of laryngeal obstruction and irritation for vocal production. Custodial Goal Pt will demonstrate functional vocal production and overall quality of voice during conversation at home, work, and in the community. Thank you for this referral. Please call [phone] Marcie Galdamez M.S., [facility] Physician Signature Date [*] MTDD
== END 2019-01-05 18:00 | disposition home or self-care (01) ==
LOC: ST 08:30
PROVIDERS: ATTEND Internal Medicine
DX: J38.3 Other diseases of vocal cords (principal)
CPT/HCPCS: 92524

== ENCOUNTER 2019-01-10 20:02 | Emergency (ER) | payer OTHER ==
[2018-11-25 15:23] VITALS: Wt 93.2 kg
[2019-01-10] MEDS ORDERED: diphenhydrAMINE 50 MG/ML VIAL IVP ONE (20:45)
[2019-01-10] MEDS ORDERED: METOCLOPRAMIDE 10 MG/2 ML SDV IVP ONE (20:45)
--- NOTE | 2019-01-10 20:59 | ER Report ---
History and Physical Time Seen By MD: 20:10 Hx. of Stated Complaint: HEADACHE SINCE THIS MORNING HPI/ROS CHIEF COMPLAINT: Headache HISTORY OF PRESENT ILLNESS: 40-year-old female presents with chief complaint of headache throughout her head. She had ECT this morning which she gets monthly. She states that soon after waking up she noticed that she had a headache which was radiating throughout her head, including jaw pain. Headache is 7 out of 10. Headache is similar to other headaches after prior ECTs. These of gradually been getting worse. She was last here in November, had evaluation that included a head CT which was normal, and was treated with supportive medication. She complains of photophobia, nausea which did not resolve with Zofran at home, but no weakness, chest pain, new shortness of breath, or other new or different symptoms.No neck pain, paresthesias. REVIEW OF SYSTEMS: Constitutional: No fever, no chills. Eyes: no blurred vision; photophobia as above ENT: jaw tightness as above, no malocclusion Cardiovascular: No chest pain, no palpitations. Respiratory: No cough, no shortness of breath. Gastrointestinal: No abdominal pain, no vomiting. Genitourinary: no dysuria Musculoskeletal: No back pain. Skin: No rashes. Neurological: above Remainder of the 14 system rev: Yes Allergies: Coded Allergies: fluconazole (Verified Allergy, Intermediate, blisters, 11/24/18) latex (Verified Allergy, Intermediate, short of breath, 11/24/18) amoxicillin (Verified Allergy, Mild, RASH, 04/30/15) aspirin (Verified Allergy, Mild, BLODDY NOSE , 04/30/15) Home Meds Active Scripts Pantoprazole Sodium (PANTOPRAZOLE SODIUM) 40 Mg Tablet.dr, 40 MG PO QDAY, #30 TAB 3 Refills Prov:CHAO PATEL MD 12/27/18 Fluticasone/Vilanterol 100/25 Mcg/Inh (BREO ELLIPTA 100/25 MCG) 1 Each Aer.pow.ba, 1 INH INH QDAY, #1 INH 3 Refills Prov:CHAO PATEL MD 12/08/18 Montelukast Sodium (SINGULAIR) 10 Mg Tablet, 10 MG PO QDAY, #30 Prov:CLEMENCIA ELAINE MD 11/28/18 Albuterol Sulfate 0.083% (ALBUTEROL SULFATE 0.083%) 2.5 Mg/3 Ml Vial.neb, 2.5 MG NEB Q2HR PRN for SHORTNESS OF BREATH, #100 VIAL 1 Refill Prov:CHERYL IGLESIAS MD 10/25/18 Reported Medications Bupropion Hcl (BUPROPION XL) 300 Mg Tab.er.24h, 300 MG PO QDAY, #10 TAB 11/24/18 Albuterol Sulfate 90 Mcg/Act (PROAIR HFA 90 MCG/ACT) 8.5 Gm Hfa.aer.ad, 1-2 PUFF IH Q2H PRN for SHORTNESS OF BREATH, INHALER 11/24/18 Memantine HCl 10 MG (Memantine HCl 10 MG) 10 Mg Tablet, 10 MG PO BID 10/23/18 Venlafaxine Hcl (VENLAFAXINE HCL ER) 150 Mg Tab.er.24, 450 MG PO QDAY 10/23/18 Trazodone Hcl (TRAZODONE HCL) 100 Mg Tablet, 100 MG PO QHS, TAB Take with a 300mg tablet for a total of 400mg at HS. 10/23/18 Prazosin Hcl (PRAZOSIN HCL) 2 Mg Capsule, 6 MG PO QHS, CAPSULE 10/23/18 Furosemide (FUROSEMIDE) 20 Mg Tablet, 1 TAB PO QPM PRN for SEE COMMENT, TAB 10/23/18 Trazodone Hcl (TRAZODONE HCL) 300 Mg Tablet, 300 MG PO QHS Take with a 100mg tablet for a total of 400mg at HS. 10/23/18 Furosemide (FUROSEMIDE) 40 Mg Tablet, 1 TAB PO QDAY, TAB 04/15/18 Propranolol Hcl (PROPRANOLOL HCL) 160 Mg Cap.sa.24h, 1 CAP PO QDAY 04/15/18 [place]-3 Fatty Acids/Fish Oil (FISH OIL 1,000 MG CAPSULE) 1 Each Capsule, 1 CAP PO QDAY, CAPSULE 07/24/16 Cholecalciferol (Vitamin D3) (VITAMIN D) 1,000 Unit Tablet, 1 TAB PO QDAY 07/11/16 Reviewed Nurses Notes: Yes Old Medical Records Reviewed: Yes Hx Smoking: No Smoking Status: Never Smoker Exposure to Second Hand Smoke?: No Hx Substance Use Disorder: No Hx Alcohol Use: Yes Constitutional Vital Sign - Last 24 Hours 01/10/19 01/10/19 01/10/19 01/10/19 20:05 20:30 21:00 21:30 Temp 98.4 Pulse 69 90 81 80 Resp 16 B/P (MAP) 152/88 113/81 (92) 105/73 (84) Pulse Ox 88 93 95 95 O2 Delivery Room Air 01/10/19 22:00 Pulse 75 B/P (MAP) 111/66 (81) Pulse Ox 94 Physical Exam General Appearance: The patient is alert, has no immediate need for airway protection and no signs of toxicity. Eyes: Pupils equal and round no pallor or injection. No nystagmus ENT, Mouth: Mucous membranes are moist. Respiratory: There are no retractions, lungs are clear to auscultation. Cardiovascular: Regular rate and rhythm. ii/vi diastolic murmur Neurological: alert, oriented x 3, cn ii-xii intact, 5/5 ms, no dysmetria Skin: Warm and dry, no rashes. Musculoskeletal: extremities are nonswollen, full range of motion DIFFERENTIAL DIAGNOSIS: After history and physical exam differential diagnosis was considered for headache including but not limited to subarachnoid hemorrhage, migraine headache, tension headache and infectious causes such as meningitis, pharyngitis and sinusitis. Medical Decision Making ED Course/Re-evaluation ED Course 48 y/o f presents with mueller that has become typical for her, antoinette after ECT. She had w/up on previous ED eval to include head CT which was nl, and has no new symptoms. Her symptoms significantly improve in ED. She is comfortable with nl neuro exam on reassessment. She ambulates comfortably on d/c; low likelihood of emergent etiology. D/c with SRP's. Decision to Disposition Date: Jan 10, 2019 Decision to Disposition Time: 22:28 Depart Departure Latest Vital Signs Vital Signs Date Time Temp Pulse Resp B/P (MAP) Pulse Ox O2 Delivery O2 Flow Rate FiO2 01/10/19 22:00 75 111/66 (81) 94 01/10/19 20:05 98.4 16 Room Air Impression: Primary Impression: Headache Condition: Improved Disposition: HOME OR SELF-CARE Referrals: CHAO PATEL MD (PCP) 5 Days Patient Instructions: Acute Headache (ED) Additional Instructions: Please return for uncontrolled headache, new or concerning features, or any concerns. If you continue to have mild headache, you may take 650mg acetaminophen every 6 hours, 50mg benadryl every 6 hours (as long as you are not driving/operating machinery) and zofran as needed for nausea. Problem Qualifiers Primary Impression: Headache Headache type: unspecified Headache chronicity pattern: acute headache Intractability: not intractable Qualified Codes: R51 - Headache MASOOD LAZARO MD Jan 10, 2019 20:59
[2019-01-10] MEDS ORDERED: MORPHINE 4 MG/ML SDV IVP ONE (21:30)
[2019-01-10 22:00] VITALS: BP 111/66
== END 2019-01-10 22:45 | disposition home or self-care (01) ==
LOC: ER 20:26
DX: R51 Headache (principal)
CPT/HCPCS: 96374; 96375; 99284; J1200; J2270; J2765

== ENCOUNTER → 2019-03-25 | Day surgery (SDC) | payer OTHER ==
[2018-11-25 15:23] VITALS: Ht 160 cm; Wt 93.4 kg
[~2019-03-25] VITALS: Ht 160 cm; Wt 93.4 kg
[2019-03-25] VITALS (8 sets, daily range): BP systolic 85–155; BP diastolic 56–98
[~2019-03-25] MED LIST changes: +DEXL60CA6 PO; +FLUT1BLS3; +GLYCOPYRROLATE 0.2MG/ML 1 ML INJ ONE; +LIDOCAINE MPF 1% 5 ML VIAL ONE; +LIDOCAINE/SOD BICARB 8.4% SYR ID ONE; +NORMOSOL R SOLN(*) 1000 ML BAG 1,000 ML IV PRN; -OMEP-125 PO; +OMEP-126 PO; +ONDA4TAB9 PO; +PRAZ1CAP26 PO; +PROPOFOL EMUL(*) 10MG/ML 20 ML 40 ML ONE; +VORT20TA PO
--- NOTE | 2019-03-25 07:46 | Short(Outpt) Discharge Summary ---
Discharge Summary Reason for Hosp/Final Diag: (1) H/O shortness of breath Hospital Course & Plan: pt presented for egd. she tolerated the procedure well. she will be discharged home when criteria met. Departure Discharge to: Home Discharge Instructions Home Meds Active Scripts Ondansetron 4 Mg Odt (ONDANSETRON 4 MG ODT) 4 Mg Tab.rapdis, 4 MG PO TID PRN for nausea, #20 TAB Prov:CHAO PATEL MD 03/10/19 Propranolol Hcl (PROPRANOLOL HCL) 160 Mg Cap.sa.24h, 1 CAP PO QDAY, #90 TAB 3 Refills Prov:CHAO PATEL MD 02/18/19 Montelukast Sodium (SINGULAIR) 10 Mg Tablet, 10 MG PO QDAY, #30 Prov:CLEMENCIA ELAINE MD 11/28/18 Albuterol Sulfate 0.083% (ALBUTEROL SULFATE 0.083%) 2.5 Mg/3 Ml Vial.neb, 2.5 MG NEB Q2HR PRN for SHORTNESS OF BREATH, #100 VIAL 1 Refill Prov:CHERYL IGLESIAS MD 10/25/18 Reported Medications Prazosin Hcl (PRAZOSIN HCL) 1 Mg Capsule, 1 MG PO PRN PRN for ANXIETY, CAPSULE 03/18/19 Pantoprazole Sodium (PANTOPRAZOLE SODIUM) 40 Mg Tablet.dr, 40 MG PO QDAY, TAB.SR 03/18/19 Vortioxetine Hydrobromide (Brintellix) 20 Mg Tablet, 20 MG PO QDAY 03/18/19 Fluticasone/Vilanterol (Breo Ellipta 200-25 Mcg INH) 1 Each Blst.w.dev, 1 PUFF QDAY 02/18/19 Bupropion Hcl (BUPROPION XL) 300 Mg Tab.er.24h, 300 MG PO QDAY, #10 TAB 11/24/18 Albuterol Sulfate 90 Mcg/Act (PROAIR HFA 90 MCG/ACT) 8.5 Gm Hfa.aer.ad, 1-2 PUFF IH Q2H PRN for SHORTNESS OF BREATH, INHALER 11/24/18 Memantine HCl 10 MG (Memantine HCl 10 MG) 10 Mg Tablet, 10 MG PO BID 10/23/18 Trazodone Hcl (TRAZODONE HCL) 100 Mg Tablet, 100 MG PO QHS, TAB Take with a 300mg tablet for a total of 400mg at HS. 10/23/18 Prazosin Hcl (PRAZOSIN HCL) 2 Mg Capsule, 6 MG PO QHS, CAPSULE 10/23/18 Furosemide (FUROSEMIDE) 20 Mg Tablet, 1 TAB PO QPM PRN for SEE COMMENT, TAB 10/23/18 Trazodone Hcl (TRAZODONE HCL) 300 Mg Tablet, 300 MG PO QHS Take with a 100mg tablet for a total of 400mg at HS. 10/23/18 Diet: Regular Activity: As Tolerated Special Instructions: we will call you in 10 days with biopsy results. ALEXEY LANG Mar 25, 2019 07:46
== END ==
LOC: OR 02:57
PROVIDERS: ATTEND Surgery
DX: K31.7 Polyp of stomach and duodenum (principal); K29.70 Gastritis, unspecified, without bleeding
CPT/HCPCS: 36416; 43239; 82948; 87077; 88305; 88313; 88342; J2001; J2704; J3490

== ENCOUNTER → 2019-04-01 | Outpatient (CLI) | payer OTHER ==
[2018-11-25 15:23] VITALS: BMI 36.7
[~2019-04-01] MED LIST changes: +CLAR-1 PO; -GLYCOPYRROLATE 0.2MG/ML 1 ML INJ ONE; -LIDOCAINE MPF 1% 5 ML VIAL ONE; -LIDOCAINE/SOD BICARB 8.4% SYR ID ONE; +METR500T15 PO; -NORMOSOL R SOLN(*) 1000 ML BAG 1,000 ML IV PRN; -PROPOFOL EMUL(*) 10MG/ML 20 ML 40 ML ONE
--- NOTE | 2019-04-18 16:05 | RADIOLOGY IMAGING REPORT ---
[facility] PATIENT NAME: IGNACIO CURRAN : [id number] MR: [id number] V: [id number] EXAM DATE: ORDERING PHYSICIAN: CHAO PATEL TECHNOLOGIST: Yolanda Soto PROCEDURE: BILATERAL DIGITAL SCREENING MAMMOGRAM WITH CAD ASSISTED INTERPRETATION & 3D TOMOSYNTHESIS. REASON FOR STUDY: Screening. FAMILY HISTORY OF BREAST CANCER: Maternal grandmother and mother in her 70's. BREAST PROCEDURES/TREATMENTS: Bilateral breast augmentation. COMPARISON: 11/07/09. VIEWS OBTAINED: Bilateral 2D & 3D full field implant displacement views CC & MLO projections & bilateral 2D full field CC & MLO projections without implant displacement. BREAST DENSITY: The breasts are heterogeneously dense which can obscure small masses. MAMMOGRAM FINDINGS: There are bilateral subpectoral implants without evidence of rupture or leakage. The breast parenchymal pattern has remained stable allowing for difference in mammographic technique & patient positioning. IMPRESSION: BIRADS 2: Benign finding. DIAGNOSTIC CATEGORY 2--BENIGN FINDING. RECOMMENDATIONS: ROUTINE MAMMOGRAM AND CLINICAL EVALUATION. Dictated by: Lynette Hoskins M.D. on 04/15/2019 at 16:03 Transcribed by: MEMO on 04/18/2019 at 8:44 Approved by: Lynette Hoskins M.D. on 04/18/2019 at 16:01 [facility]
== END ==
LOC: MAMO 01:36
PROVIDERS: ATTEND Internal Medicine
DX: Z02.9 Encounter for administrative examinations, unspecified (principal)
CPT/HCPCS: 77063; 77067

== ENCOUNTER → 2019-04-06 | Outpatient (CLI) | payer OTHER ==
[2018-11-25 15:23] VITALS: BMI 36.7
[2019-04-06 10:24] LABS: PLATELET COUNT, AUTOMATED 206 K/uL (150-450)
[2019-04-06 12:04] LABS: LDL CHOLESTEROL 70 mg/dl
== END ==
LOC: LAB 10:06
PROVIDERS: ATTEND Internal Medicine
DX: E11.9 Type 2 diabetes mellitus without complications (principal); K21.9 Gastro-esophageal reflux disease without esophagitis; F33.2 Major depressive disorder, recurrent severe without psychotic features; I10 Essential (primary) hypertension; R10.9 Unspecified abdominal pain
CPT/HCPCS: 36415; 82040; 82247; 82310; 82374; 82435; 82465; 82565; 82784; 82947; 83036; 83516; 83718; 84075; 84132; 84155; 84295; 84443; 84450; 84460; 84478; 84520; 85025

== ENCOUNTER 2019-05-29 10:18 | Emergency (ER) | payer OTHER ==
[2018-11-25 15:23] VITALS: Wt 93.2 kg
[2019-05-29] MEDS ORDERED: NS(*) 0.9% 1000 ML BAG 1,000 ML IV ONE (10:33)
[2019-05-29] MEDS ORDERED: ONDANSETRON 4 MG/2 ML VIAL IVP ONE ×2 (10:35→11:10)
--- NOTE | 2019-05-29 10:36 | ER Report ---
History and Physical Time Seen By MD: 10:31 HPI/PERRI CHIEF COMPLAINT: Nausea and vomiting HISTORY OF PRESENT ILLNESS: This is a 48-year-old female presents emergency department for nausea vomiting. Patient states that she's had some GI issues si nce this past winter, has seen Dr. Sheldon, had an upper endoscopy had a biopsy, was diagnosed with celiac, H. pylori, has been taking Zofran almost daily since the procedure this spring. She ran out of Zofran a couple days ago, and has had nausea and vomiting for the last 19 hours, she's had non-formed stools since this past when her as well, however over the last 19 hours while she's had vomiting she's had small stools that seem to be slightly more unformed. She denies fevers at home. She did follow up with urgent care this morning, they noted her oxygen saturation up in the 70s, says currently center to the ER for evaluation. She's had on and off for lung issues for over a year, has seen a sql manager in [place]. She denies shortness of breath at this time, no chest pain, no rashes or headaches. REVIEW OF SYSTEMS: Constitutional: No fever, no chills. Eyes: No discharge. ENT: No sore throat. Cardiovascular: No chest pain, no palpitations. Respiratory: As above. Gastrointestinal: As above Genitourinary: No hematuria. Musculoskeletal: No back pain. Skin: No rashes. Neurological: No headache. Allergies: Coded Allergies: fluconazole (Verified Allergy, Intermediate, blisters, 05/29/19) latex (Verified Allergy, Intermediate, short of breath, 05/29/19) amoxicillin (Verified Allergy, Mild, RASH, 05/29/19) aspirin (Verified Allergy, Mild, BLODDY NOSE , 05/29/19) Home Meds Active Scripts Sucralfate (CARAFATE) 1 Gm Tablet, 1 GM PO QID, #60 TAB Take before meals and at bedtime. Crush the tablet and mix with water before taking. Prov:MELISSA WELLERP- 05/29/19 Promethazine Hcl (PROMETHAZINE HCL) 25 Mg Tablet, 25 MG PO Q8H, #12 TAB 0 Refills Prov:MELISSA WELLER ACCOUNT MANAGER TRAINEE-BC 05/29/19 Ondansetron Hcl (ZOFRAN) 4 Mg Tablet, 4 MG PO Q4-6H PRN for prn, #20 TAB Prov:MELISSA WELLER ACCOUNT MANAGER TRAINEE-BC 05/29/19 Pantoprazole Sodium (PANTOPRAZOLE SODIUM) 40 Mg Tablet.dr, 40 MG PO BID, #60 TAB.SR 3 Refills Prov:CHAO PATEL MD 04/05/19 Propranolol Hcl (PROPRANOLOL HCL) 160 Mg Cap.sa.24h, 1 CAP PO QDAY, #90 TAB 3 Refills Prov:CHAO PATEL MD 02/18/19 Albuterol Sulfate 0.083% (ALBUTEROL SULFATE 0.083%) 2.5 Mg/3 Ml Vial.neb, 2.5 MG NEB Q2HR PRN for SHORTNESS OF BREATH, #100 VIAL 1 Refill Prov:CHERYL IGLESIAS MD 10/25/18 Reported Medications Prazosin Hcl (PRAZOSIN HCL) 1 Mg Capsule, 1 MG PO PRN PRN for ANXIETY, CAPSULE 03/18/19 Vortioxetine Hydrobromide (Brintellix) 20 Mg Tablet, 20 MG PO QDAY 03/18/19 Bupropion Hcl (BUPROPION XL) 300 Mg Tab.er.24h, 300 MG PO QDAY, #10 TAB 11/24/18 Albuterol Sulfate 90 Mcg/Act (PROAIR HFA 90 MCG/ACT) 8.5 Gm Hfa.aer.ad, 1-2 PUFF IH Q2H PRN for SHORTNESS OF BREATH, INHALER 11/24/18 Memantine HCl 10 MG (Memantine HCl 10 MG) 10 Mg Tablet, 10 MG PO BID 10/23/18 Trazodone Hcl (TRAZODONE HCL) 100 Mg Tablet, 100 MG PO QHS, TAB Take with a 300mg tablet for a total of 400mg at HS. 10/23/18 Prazosin Hcl (PRAZOSIN HCL) 2 Mg Capsule, 6 MG PO QHS, CAPSULE 10/23/18 Furosemide (FUROSEMIDE) 20 Mg Tablet, 1 TAB PO QPM PRN for SEE COMMENT, TAB 10/23/18 Trazodone Hcl (TRAZODONE HCL) 300 Mg Tablet, 300 MG PO QHS Take with a 100mg tablet for a total of 400mg at HS. 10/23/18 Discontinued Reported Medications Fluticasone/Vilanterol (Breo Ellipta 200-25 Mcg INH) 1 Each Blst.w.dev, 1 PUFF QDAY 02/18/19 Discontinued Scripts Metronidazole (METRONIDAZOLE) 500 Mg Tablet, 500 MG PO TID, #42 TAB Prov:CHAO PATEL MD 04/05/19 Clarithromycin (CLARITHROMYCIN) 500 Mg Tablet, 500 MG PO BID, #28 TAB Prov:CHAO PATEL MD 04/05/19 Ondansetron 4 Mg Odt (ONDANSETRON 4 MG ODT) 4 Mg Tab.rapdis, 4 MG PO TID PRN for nausea, #30 TAB 1 Refill Prov:CHAO PATEL MD 04/05/19 Montelukast Sodium (SINGULAIR) 10 Mg Tablet, 10 MG PO QDAY, #30 Prov:CLEMENCIA ELAINE MD 11/28/18 Past Medical/Surgical History Patient has a past medical and surgical. Headaches, symptomatic tachycardia, serotonin crisis, irregular heartbeat, hypertension, hypoxia, is seeing a p ulmonologist, uses oxygen at night, asthma, pneumonia, positive endoscopy for celiac disease, negative blood test, GERD, cholecystectomy, polycystic ovarian syndrome, vocal cord dysfunction, wears glasses, [id number] diabetic, depression, hernia repair, EGD, uterine ablation, tubal ligation, right knee surgery, transient ulnar nerve relocation, tonsillectomy, Lasik. Reviewed Nurses Notes: Yes Hx Smoking: No Smoking Status: Never Smoker Exposure to Second Hand Smoke?: No Hx Substance Use Disorder: No Hx Alcohol Use: Yes Constitutional Vital Sign - Last 24 Hours 05/29/19 05/29/19 05/29/19 05/29/19 10:20 10:20 10:30 10:31 Temp 98.6 Pulse 81 81 Resp 16 B/P (MAP) 164/84 134/97 (109) Pulse Ox 82 96 O2 Delivery Room Air O2 Flow Rate 2.0 05/29/19 05/29/19 05/29/19 05/29/19 10:45 11:00 11:15 11:45 Pulse 76 92 79 117 B/P (MAP) 144/96 (112) Pulse Ox 97 95 96 83 05/29/19 05/29/19 05/29/19 05/29/19 12:00 12:15 12:23 12:30 Pulse 79 74 71 B/P (MAP) 127/89 (102) 119/81 (94) Pulse Ox 95 97 94 05/29/19 05/29/19 05/29/19 05/29/19 12:45 12:50 12:55 13:00 Pulse 67 65 71 68 B/P (MAP) 114/68 (83) Pulse Ox 96 96 96 94 Physical Exam General Appearance: The patient is alert, has no immediate need for airway protection and no signs of toxicity. Eyes: Pupils equal and round no pallor or injection. ENT, Mouth: Mucous membranes are moist. Respiratory: There are no retractions, lungs are clear to auscultation. Cardiovascular: Regular rate and rhythm. No murmurs, clicks or rubs. Gastrointestinal: Abdomen is soft, mildly tender in all quadrants, no masses, hypoactive bowel sounds. Neurological: Alert and oriented 4. Moving all extremities. Following all commands. No focal neuro deficits. Skin: Warm and dry, no rashes. Musculoskeletal: Neck is supple non tender. Extremities are nontender, nonswollen and have full range of motion. DIFFERENTIAL DIAGNOSIS: After history and physical exam differential diagnosis was considered for aspiration pneumonia, constipation, bowel obstruction, GERD, gastric ulcer, gastritis. Medical Decision Making Data Points Result Diagram: 05/29/19 1020 05/29/19 1020 Laboratory Hematology Test 05/29/19 10:20 White Blood Count 10.2 k/uL (4.5-11.0) Red Blood Count 4.43 M/uL (4.17-5.56) Hemoglobin 12.5 g/dL (12.0-16.0) Hematocrit 37.9 % (34.0-47.0) Mean Corpuscular Volume 85.6 fL (80.0-96.0) Mean Corpuscular Hemoglobin 28.2 pg (26.0-33.0) Mean Corpuscular Hemoglobin Concent 32.9 g/dL (32.0-36.0) Red Cell Distribution Width 15.5 % (11.5-14.5) H Platelet Count 262 K/uL (150-450) Mean Platelet Volume 10.2 fL (7.2-11.1) Neutrophils (%) (Auto) 67.9 % (39.4-72.5) Lymphocytes (%) (Auto) 23.9 % (17.6-49.6) Monocytes (%) (Auto) 5.9 % (4.1-12.4) Eosinophils (%) (Auto) 1.6 % (0.4-6.7) Basophils (%) (Auto) 0.7 % (0.3-1.4) Nucleated RBC Relative Count (auto) 0.0 /100WBC Neutrophils # (Auto) 6.9 K/uL (2.0-7.4) Lymphocytes # (Auto) 2.4 K/uL (1.3-3.6) Monocytes # (Auto) 0.6 K/uL (0.3-1.0) Eosinophils # (Auto) 0.2 K/uL (0.0-0.5) Basophils # (Auto) 0.1 K/uL (0.0-0.1) Nucleated RBC Absolute Count (auto) 0.00 K/uL Chemistry Test 05/29/19 10:20 Sodium Level 137 mmol/L (137-145) Potassium Level 3.6 mmol/L (3.5-5.0) Chloride Level 103 mmol/L (98-107) Carbon Dioxide Level 28 mmol/L (22-31) Blood Urea Nitrogen 8 mg/dl (7-18) Creatinine 0.70 mg/dl (0.52-1.04) Glomerular Filtration Rate Calc > 60.0 Random Glucose 119 mg/dl (75-110) Calcium Level 9.1 mg/dl (8.4-10.2) Total Bilirubin 0.6 mg/dl (0.2-1.3) Aspartate Amino Transf (AST/SGOT) 34 U/L (0-35) Alanine Aminotransferase (ALT/SGPT) 50 U/L (0-56) Alkaline Phosphatase 74 U/L (0-126) Total Protein 7.1 g/dl (6.3-8.2) Albumin 4.1 g/dl (3.5-5.0) Urinalysis Test 05/29/19 11:46 Urine Color Yellow Urine Clarity Clear Urine pH 7.0 pH (4.8-9.5) Urine Specific Sims 1.011 Urine Protein Negative mg/dL (NEGATIVE) Urine Glucose (UA) Negative mg/dL (NEGATIVE) Urine Ketones Negative mg/dL (NEGATIVE) Urine Blood Negative (NEGATIVE) Urine Nitrite Negative (NEGATIVE) Urine Bilirubin Negative (NEGATIVE) Urine Urobilinogen Negative mg/dL (0.2-1.9) Urine Leukocyte Esterase Negative (NEGATIVE) Urine RBC <1 /HPF (0-2/HPF) Urine WBC 1 /HPF (0-5/HPF) Urine Squamous Epithelial Cells Moderate /LPF (</=FEW) Urine Bacteria Few /HPF (NONE-FEW) Urine Mucus Few /HPF (NONE-FEW) EKG/Imaging Imaging FACILITY: [facility] - [place], [place] PATIENT NAME: Erin Mckay : 1970 MR: [id number] V: [id number] EXAM DATE: ORDERING PHYSICIAN: MELISSA WELLER TECHNOLOGIST: Location: [facility] [place] Patient: Erin Mckay : 1970 Visit/Account:[id number] Date of Sevice: 05/29/2019 ACUTE ABDOMEN SERIES 3 VIEW Indication: hypoxia and hypoactive bowels Comparison: Chest x-ray 11/24/2018 Findings: The lungs are clear. Heart size and the pulmonary vasculature are normal. Normal bowel gas pattern is seen. Silhouette of the liver spleen and kidneys are normal. Bones are unremarkable. IMPRESSION: 1. Clear lungs. 2. Normal bowel gas pattern. Report Dictated By: Fabian Pathak at 05/29/2019 11:52 AM Report E-Signed By: Fabian Pathak at 05/29/2019 11:53 AM WSN:[id number] ED Course/Re-evaluation Clinical Indication for ER IV: Hydration, IV Access ED Course The patient was admitted to room. A history and physical obtained. Differential diagnoses were considered. An IV was started a CBC, CMP were obtained. UA was collected. Lab studies unremarkable, negative UA. A 1 L normal saline administered, 4 mg IV Zofran 2 with moderate relief, 12.5 mg IV Phenergan with significant relief of the nausea. Three-view abdominal series x-ray negative for any acute pathology. Reviewed the results with the patient, she's had recurrent epigastric discomfort, she did have an upper endoscopy which was negative for ulcerations however she has had increased pain I did recommend starting her on Carafate, she is agreeable, she is also given a prescription for Phenergan and Zofran. She will follow up with her PCP, as well as Dr. Sheldon with a consideration of following up with a GI specialist in [facility], she also follow-up with pulmonology for her recurrent hypoxia. She does have oxygen at home there is no need for an order at this time, she will continue using the oxygen until she follows up with pulmonology. The patient had no other questions or concerns at this time and was discharged home. Decision to Disposition Date: May 29, 2019 Decision to Disposition Time: 12:47 Depart Departure Latest Vital Signs Vital Signs Date Time Temp Pulse Resp B/P (MAP) Pulse Ox O2 Delivery O2 Flow Rate FiO2 05/29/19 13:00 68 114/68 (83) 94 05/29/19 10:20 2.0 05/29/19 10:20 98.6 16 Room Air Impression: Primary Impression: Hypoxia Additional Impression: Nausea & vomiting Condition: Improved Disposition: HOME OR SELF-CARE Referrals: CHAO PATEL MD (PCP) ALEXEY SHELDON Sucralfate (CARAFATE) 1 Gm Tablet 1 GM PO QID, #60 TAB Take before meals and at bedtime. Crush the tablet and mix with water before taking. Prov: MELISSA WELLER [facility] 05/29/19 Promethazine Hcl (PROMETHAZINE HCL) 25 Mg Tablet 25 MG PO Q8H, #12 TAB 0 Refills Prov: MELISSA WELLER [facility] 05/29/19 Ondansetron Hcl (ZOFRAN) 4 Mg Tablet 4 MG PO Q4-6H PRN for prn, #20 TAB Prov: MELISSA WELLER [facility] 05/29/19 Patient Instructions: Acute Nausea and Vomiting (ED), Hypoxia (ED) Additional Instructions: Please take Zofran or Phenergan as needed for nausea and vomiting. Try the Carafate for recurrent epigastric discomfort. Please follow-up with Dr. Sheldon for reevaluation of your epigastric discomfort and discussion about your recurrent symptoms. You can also follow-up with gastroenterology in the [place] area if you so desire. You can also follow-up with pulmonology in [place] and or [facility] or the [place] in [place] if he would like a 2nd opinion from the sql manager that yanelis eduardo was seen in the [place] area. Get plenty of rest. Drink plenty of water. Return to the ER for any acute concerns or worsening symptoms. Continue wearing your home oxygen and following up with pulmonology per Problem Qualifiers Additional Impression: Nausea & vomiting Vomiting type: unspecified Vomiting Intractability: non-intractable Qualified Codes: R11.2 - Nausea with vomiting, unspecified MELISSA WELLER ACCOUNT MANAGER TRAINEE-BC May 29, 2019 10:36
[2019-05-29 10:49] LABS: PLATELET COUNT, AUTOMATED 262 K/uL (150-450)
--- NOTE | 2019-05-29 12:02 | RADIOLOGY IMAGING REPORT ---
[place] [facility] [place] NAME: Erin Mckay : 1970 MR: [id number] V: [id number] EXAM DATE: ORDERING PHYSICIAN: MELISSA WELLER TECHNOLOGIST: Location: [facility] - [place] Patient: Erin Mckay : 1970 Visit/Account:[id number] Date of Sevice: 05/29/2019 ACUTE ABDOMEN SERIES 3 VIEW Indication: hypoxia and hypoactive bowels Comparison: Chest x-ray 11/24/2018 Findings: The lungs are clear. Heart size and the pulmonary vasculature are normal. Normal bowel gas pattern is seen. Silhouette of the liver spleen and kidneys are normal. Bones are un remarkable. IMPRESSION: 1. Clear lungs. 2. Normal bowel gas pattern. Report Dictated By: Fabian Pathak at 05/29/2019 11:52 AM Report E-Signed By: Fabian Pathak at 05/29/2019 11:53 AM WSN:[id number]
[2019-05-29] MEDS ORDERED: PROMETHAZINE 25 MG/ML 1 ML AMP IVP ONE (12:20)
[2019-05-29] MEDS ORDERED: PROM-110 PO (12:53)
[2019-05-29] MEDS ORDERED: ONDA4TAB97 PO (12:53)
[2019-05-29] MEDS ORDERED: SUCR1TAB85 PO (12:54)
[2019-05-29 13:00] VITALS: BP 114/68
== END 2019-05-29 13:12 | disposition home or self-care (01) ==
LOC: ER 10:48
DX: R09.02 Hypoxemia (principal); R11.2 Nausea with vomiting, unspecified
CPT/HCPCS: 74022; 81001; 85025; 96361; 96374; 96375; 96376; 99284; J2405; J2550; J7030; 82040; 82247; 82310; 82374; 82435; 82565; 82947; 84075; 84132; 84155; 84295; 84450; 84460; 84520